=== PATIENT | female | born 1980 | race Caucasian/White ===

== ENCOUNTER 2020-12-27 11:19 | Emergency (ER) | payer OTHER, SELFPAY ==
--- NOTE | ~2020-12-27 | XR_ITS ---
LUMBAR SPINE INDICATION: Low back pain with bending over TECHNIQUE: 3 views lumbar spine COMPARISON: None FINDINGS: No fracture, subluxation or dislocation. Pedicles are intact. Mild levocurvature of the lum bar spine. No evidence for spondylolysis or spondylolisthesis. Vertebral bodies and disk spaces are preserved. Sacral foramen are symmetric. IMPRESSION: 1: No acute abnormality of the lumbar spine identified. Reviewed, dictated and finalized at location A.
[2020-12-27 11:25] VITALS: BP 110/58; PULSE 83; RESP 14; TEMP 36.8; O2SAT 98
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
== END 2020-12-27 12:36 | disposition home or self-care (01) ==
PROVIDERS: Emergency Provider Nurse Practitioner Family; PCP Family Medicine
DX: M62.830 Muscle spasm of back (principal); S39.012A Strain of muscle, fascia and tendon of lower back, initial encounter; X50.0XXA Overexertion from strenuous movement or load, initial encounter
CPT/HCPCS: 72100; 99213; G0463

== ENCOUNTER 2022-02-14 11:37 | Emergency (ER) | payer OTHER, SELFPAY ==
--- NOTE | ~2022-02-14 | XR_ITS ---
EXAMINATION: XR toe 5th LT min 2V INDICATION: Left fifth toe pain, initial encounter TECHNIQUE: Three views of the left fifth toe are obtained. COMPARISON: None available FINDINGS: There is an acute, traumatic, oblique neck fracture of the fifth proximal phalanx. No addit ional fracture is identified. The joint spaces are normal. There is soft tissue swelling of the fifth toe. IMPRESSION: 1. Acute fracture of the fifth proximal phalanx. Reviewed, dictated and finalized at location A.
[2022-02-14 11:44] VITALS: BP 120/62; PULSE 79; RESP 14; TEMP 36.9; O2SAT 100
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
== END 2022-02-14 12:30 | disposition home or self-care (01) ==
PROVIDERS: Emergency Provider Nurse Practitioner; PCP Family Medicine
DX: S92.512A Displaced fracture of proximal phalanx of left lesser toe(s), initial encounter for closed fracture (principal); W22.03XA Walked into furniture, initial encounter
CPT/HCPCS: 73660; 99214; G0463

== ENCOUNTER 2022-12-27 11:08 | Emergency (ER) | payer OTHER, SELFPAY ==
[2022-12-27 11:12] VITALS: BP 118/69; PULSE 79; RESP 16; TEMP 36.9; O2SAT 100
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
== END 2022-12-27 11:40 | disposition home or self-care (01) ==
PROVIDERS: Emergency Provider Nurse Practitioner Family; PCP Family Medicine
DX: H66.92 Otitis media, unspecified, left ear (principal); J45.909 Unspecified asthma, uncomplicated
CPT/HCPCS: 99213; G0463

== ENCOUNTER 2023-04-03 16:27 | Emergency (ER) | payer OTHER, SELFPAY ==
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
[2023-04-03 17:40] VITALS: BP 132/82; PULSE 79; RESP 16; TEMP 36.8; O2SAT 98
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
[2023-04-03] MEDS: LIDOCAINE 5% PATCH 1 PATCH TRANSDERM (21:45)
[2023-04-03] MEDS: CYCLOBENZAPRINE HCL 10 MG TABLET PO (21:46)
[2023-04-03] MEDS: KETOROLAC 30 MG/ML VIAL (*BKC) IM (21:47)
== END 2023-04-03 22:09 | disposition home or self-care (01) ==
PROVIDERS: Emergency Provider Emergency Medicine; PCP Family Medicine
DX: M54.2 Cervicalgia (principal); M79.10 Myalgia, unspecified site; J45.909 Unspecified asthma, uncomplicated; V49.40XA Driver injured in collision with unspecified motor vehicles in traffic accident, initial encounter
CPT/HCPCS: 70450; 72125; 96372; 99284; A9270; J1885

== ENCOUNTER 2023-04-14 17:44 | Emergency (ER) | payer OTHER, SELFPAY ==
--- NOTE | ~2023-04-14 | CT_ITS ---
EXAMINATION: CT abdomen pelvis wo con DATE: 04/15/2023 03:05 INDICATION: Low abdominal pain. Nausea. TECHNIQUE: Computed tomography (CT) of the abdomen and pelvis was performed without intravenous contr ast. Automated exposure control and iterative reconstruction technique were employed. The dose-length product was 333.73 mGy-cm. COMPARISON: None. FINDINGS: The visualized portions of the lung bases demonstrate minimal atelectasis. No pleural effus ion. The heart size is normal. No pericardial effusion. There is a small sliding hiatal hernia. There is diffuse hepatic steatosis. The liver, spleen, pancreas, adrenal glands, and kidneys are normal. T here is no urolithiasis. There is diverticulosis of the colon without evidence of diverticulitis. The appendix is normal. There are no dilated loops of bowel. There are no pathologically enlarged lymph nodes. There is no free intraperitoneal fluid. There is diastasis of the rectus abdominis muscles. Th ere is a widemouthed ventral hernia containing nonobstructed sigmoid colon. There is mild lumbar spon dylosis. IMPRESSION: 1. Small sliding hiatal hernia. 2. Diffuse hepatic steatosis. 3. Wide mouthed ventral hernia containing nonobstructed sigmoid colon. Reviewed, dictated and finalized at location E.
[2023-04-14 17:46] VITALS: BP 127/75; PULSE 84; RESP 16; TEMP 36.5; O2SAT 99
[2023-04-14 19:03] LABS: Basophils Percent Auto 0.3 % (0.2-1.2); Eosinophils Absolute Auto 0.4 K/mm3 (0-0.3); Eosinophils Percent Auto 4.2 % (0-4.4); Hematocrit 46.6 % (37.0-47.0); Hemoglobin 15.7 g/dL (12.0-15.0); Immature Granulocyte Absolute 0.03 K/mm3 (0.00-0.031); Immature Granulocyte Percent A 0.3 % (0-0.5); Lymphocytes Absolute Auto 1.96 K/mm3 (0.9-3.2); Lymphocytes Percent Auto 22.1 % (18.3-44.2); Mean Corpuscular HGB Conc 33.7 g/dl (32-36); Mean Corpuscular Hemoglobin 31.7 pg (26-34); Mean Corpuscular Volume 94.1 fl (80-100); Mean Platelet Volume 9.9 fl (7.4-10.4); Monocytes Absolute Auto 0.5 K/mm3 (0.1-0.6); Monocytes Percent Auto 5.4 % (2.6-8.5); Neutrophils Percent Auto 67.7 % (45.5-73.1); Platelet Count Result 276 k/mm3 (150-375); Red Blood Count 4.95 M/mm3 (4.2-5.4); Red Cell Distribution Width 12.8 % (11.5-14.5); White Blood Count 8.9 K/mm3 (4.5-10.0)
[2023-04-14 19:30] LABS: Appearance Urine Turbid (Clear); Bacteria Urine None Seen /hpf; Bilirubin Urine Negative (Negative); Blood Urine Negative (Negative); Color Urine Yellow (Yellow); Glucose Urine UA Negative (Negative); Ketones Urine Negative (Negative); Leukocyte Esterase Ur Negative LEU/UL (Negative); Nitrate Urine Negative (Negative); Non Pathogenic Casts 0-2; Protein Urine Negative (Negative); RBC Urine 0-2 /hpf (0-2); Specific Grav Ur 1.018 (1.001-1.035); Squamous Epithelial Cell Urine None seen /hpf (Few); Urobilinogen Urine 0.2 mg/dL (<2.0); WBC Urine 0-5 /hpf
[2023-04-14 19:44] LABS: Add Urine Microscopic? YES
[2023-04-15] VITALS (21 sets, daily range): BP systolic 102–107; BP diastolic 64–72; PULSE 65–98; RESP 10–29; O2SAT 97–100
[2023-04-15] MEDS: ONDANSETRON INJ 4 MG/2 ML VIAL IV PUSH (01:42)
[2023-04-15] MEDS: MORPHINE SULFATE (*CRX) 2 MG/ML INJ IV PUSH (01:42)
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
[2023-04-15 02:20] LABS: Alanine Aminotransferase 46 U/L (6-35); Albumin Level 4.9 g/dL (3.5-5.1); Alkaline Phosphatase 40 U/L (38-126); Anion Gap 7 mmol/L (8-16); Aspartate Amino Transferase 36 U/L (14-36); Bilirubin,Total 0.6 mg/dL (0.2-1.3); Blood Urea Nitrogen 15 mg/dL (7-17); Carbon Dioxide 30 mmol/L (22-30); Chloride 100 mmol/L (98-107); Estimated Glomerular Filt Rate > 60; Glucose 98 mg/dL (65-110); Lipase 102 U/L (23-300); Potassium 3.8 mmol/L (3.4-5.0); Sodium 137 mmol/L (137-145)
[2023-04-15 02:36] LABS: Pregnancy On Board Control Positive; Urine Pregnancy Test Negative
== END 2023-04-15 06:19 | disposition home or self-care (01) ==
PROVIDERS: Emergency Medicine; Physician Assistant; Emergency Provider Emergency Medicine; PCP Family Medicine
DX: K44.9 Diaphragmatic hernia without obstruction or gangrene (principal); R11.0 Nausea; R10.30 Lower abdominal pain, unspecified; J45.909 Unspecified asthma, uncomplicated; K76.0 Fatty (change of) liver, not elsewhere classified; K43.9 Ventral hernia without obstruction or gangrene
CPT/HCPCS: 36415; 74176; 80053; 81001; 81025; 83690; 85025; 96374; 96375; 99284; J2270; J2405

== ENCOUNTER 2023-05-01 10:07 | Outpatient (CLI) | payer OTHER, SELFPAY ==
[2023-05-01 11:19] LABS: Alanine Aminotransferase 41 U/L (6-35); Albumin Level 4.6 g/dL (3.5-5.1); Alkaline Phosphatase 44 U/L (38-126); Aspartate Amino Transferase 34 U/L (14-36); Bilirubin,Total 0.5 mg/dL (0.2-1.3)
[2023-05-01 12:06] LABS: Hepatitis B Surface Antigen Negative (Negative)
[2023-05-01 12:12] LABS: HAV RESULT Negative (Negative); Hepatitis B Core IgM Result Negative (Negative)
[2023-05-01 12:24] LABS: Hepatitis C Virus Antibody Negative (Negative)
== END 2023-05-01 10:08 | disposition home or self-care (01) ==
PROVIDERS: PCP Family Medicine; Visit Provider Nurse Practitioner
DX: K76.0 Fatty (change of) liver, not elsewhere classified (principal); R74.01 Elevation of levels of liver transaminase levels
CPT/HCPCS: 36415; 80074; 80076

== ENCOUNTER 2023-05-16 13:59 | Outpatient (CLI) | payer OTHER, SELFPAY ==
[2023-05-16 15:17] LABS: Prothrombin Time 13.1 Seconds (11.1-14.7)
== END 2023-05-16 14:00 | disposition home or self-care (01) ==
LOC: ANHSURGERY 14:09
PROVIDERS: Anesthesiology; PCP Family Medicine; Visit Provider Surgery
DX: Z01.818 Encounter for other preprocedural examination (principal); K76.0 Fatty (change of) liver, not elsewhere classified
CPT/HCPCS: 36415; 85610; 85730

== ENCOUNTER 2023-05-18 01:42 | Day surgery (SDC) | payer OTHER, SELFPAY ==
[2023-05-05 09:45] VITALS: BMI 23.6
--- NOTE | 2023-05-17 08:40 | SUR.PREOP ---
Patient called regarding upcoming procedure. Reviewed preop instructions, appointment times, and procedure prep.
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
[2023-05-18] MEDS: LACTATED RINGERS 1,000 ML 150 ML IV CONT (12:00)
[2023-05-18 12:04] VITALS: BP 104/74; PULSE 91; RESP 18; TEMP 36.2; O2SAT 100
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
--- NOTE | 2023-05-18 12:44 | SUR.OPER ---
EGD END 1239 COLONOSCOPY START 1244
[2023-05-18 13:00] VITALS: BP 93/63; PULSE 85; RESP 18; O2SAT 96
[2023-05-18 13:10] VITALS: BP 116/97; PULSE 84; RESP 18; O2SAT 100
[2023-05-18 13:20] VITALS: BP 100/69; PULSE 73; RESP 18; O2SAT 99
== END 2023-05-18 13:45 | disposition home or self-care (01) ==
PROVIDERS: PCP Family Medicine; Visit Provider Internal Medicine Gastroenterology
PROC: 0DJ08ZZ Inspection of Upper Intestinal Tract, Via Natural or Artificial Opening Endoscopic (ICD-10-PCS; CPT 43235; principal; 2023-05-18 13:00)
DX: K31.7 Polyp of stomach and duodenum (principal); K29.80 Duodenitis without bleeding; K21.9 Gastro-esophageal reflux disease without esophagitis; K57.30 Diverticulosis of large intestine without perforation or abscess without bleeding; Z79.51 Long term (current) use of inhaled steroids; Z79.1 Long term (current) use of non-steroidal anti-inflammatories (NSAID); Z79.899 Other long term (current) drug therapy
CPT/HCPCS: 43251; 43239; 45378; 87081; 88305; J2704; J7120

== ENCOUNTER 2023-05-23 11:11 | Inpatient (IN) | payer OTHER, SELFPAY ==
--- NOTE | 2023-05-15 16:41 | SUR.PREOP ---
Report to the Outpatient Waiting Room, entrance under the green pavilion located off [facility], at time 0600 on date 05/23/23. Planned Procedure Time: 0730. Time changes happen often and if your time is changed the preop area will call you the afternoon before. - You and your visitor will be asked to self-screen and do not enter if you have any COVID symptoms. - A mask is optional within the hospital at this time. Patients may have clear liquids (water, carbonated beverages, clear teas, apple juice) until 3 hours prior to surgery with a maximum of 20 ounces. - NO CLEAR LIQUIDS AFTER 0430 - No food from midnight until time of surgery - Infants may have breast milk until 4 hours before surgery, infant formula 6 hours prior to surgery. - Children will be allowed to drink immediately following surgery. If applicable, please bring a bottle or sippy cup to assist with drinking. Juice, water, soda, and popsicles are readily available. For infants on formula, please bring formula the day of surgery. Pacifiers are allowed. Take the following medications with a SIP of water the morning of surgery: BRING YOUR ALBUTEROL INHALER WITH YOU THE DAY OF SURGERY DO NOT STOP ANY OF YOUR OTHER PRESCRIPTION MEDICATIONS PRIOR TO SURGERY ?EXCEPT THE FOLLOWING Medications to discontinue per physician CALL DR HERNANDEZ'S OFFICE IN REGARDS TO STOPPING IBUPROFEN Date to take last dose Please no make-up, nail turkmen, hairspray, perfume, deodorant, or body powder the day of surgery. No jewelry (including any body piercings) or valuables the day of surgery, leave them at home. Please take a shower or bath the night before, or the morning of, surgery with an antibacterial soap. Wear comfortable, loose fitting clothing. Children are encouraged to wear pajamas. - Jewelry must be removed prior to entering the operating room. Rings and piercings that are not removed may be cut off. - The hospital will not accept responsibility for valuables. - Please leave all valuables, including medications, at home the day of surgery. If you are going home after surgery, a licensed school boat driver must drive you home. - NO public transportation without another adult if you receive anesthesia. - We recommend that an adult stay with you for 24 hours following discharge. - We also recommend that you do not drive, make important decision, drink alcoholic beverages, or take any drugs that were not prescribed by your health care provider for at least 24 hours after your discharge time. For Pediatric surgeries, we recommend two adults accompany the child home. Follow any additional instructions given to you from your surgeon. If you or anyone in your household have experienced Covid symptoms in the past week, please notify your surgeon or the nurse liaison at the phone number below for possible testing. Telephone instructions given to NATACHA RODRIGUEZ and asked if any additional questions and then verbalized understanding. Patient advised to call surgeon office or pre surgery nurse liaison [phone] if any additional questions.
[2023-05-15 16:57] VITALS: BMI 22.3
[2023-05-23] VITALS (17 sets, daily range): BP systolic 104–127; BP diastolic 69–90; PULSE 70–104; RESP 12–18; TEMP 36.1–37.1; O2SAT 85–100; BMI 22.6
--- NOTE | ~2023-05-23 | XR_ITS ---
XR chest 1V portable 05/23/2023 11:59 Indication: Pneumothorax. Previous chest tube. Procedure: AP portable chest Comparison: 05/23/2023 Findings: Interval development of focal airspace disease of the left upper lobe, right mid thorax and left lower lung, most likely atelectasis. No pleural effusion. Interval removal of endotracheal tube . No acute osseous abnormality. Impression: 1: Interval development of patchy bilateral airspace disease, most likely atelectasis. Reviewed, dictated and finalized at location L. HOUSE UNLOADER Impression: 1: Interval development of patchy bilateral airspace disease, most likely atele ctasis.
--- NOTE | ~2023-05-23 | XR_ITS ---
XR chest-chest tube insert/pos 05/23/2023 10:56 Indication: Previous pneumothorax. Procedure: AP portable chest Comparison: No prior studies for comparison. Findings: Endotracheal tube tip 2.4 cm above the lizeth. Bilateral perihilar interstitial infiltrates are present may represent mild edema or pneumonia. No pleural effusion. No definite pneumothorax, al though the lung apices are excluded. No acute osseous abnormality. Impression: 1: Bilateral interstitial infiltrates may represent mild edema or pneumonia. Reviewed, dictated and finalized at location L. VATING MACHINE OPERATOR Impression: 1: Bilateral interstitial infiltrates may represent mild edema or pneumonia.
[2023-05-23] MEDS: ACETAMINOPHEN 500 MG TABLET 1000 MG PO (07:15)
[2023-05-23] MEDS: LACTATED RINGERS 1,000 ML 30 ML IV CONT ×2 (07:15→11:15)
[2023-05-23] MEDS: KETOROLAC 15 MG/ML VIAL (*BKC) IV PUSH (07:15)
--- NOTE | 2023-05-23 07:18 | WPDHPUPDATE1 ---
History and Physical Update Update Date/Time: 05/23/23 07:18 History and Physical has been reviewed, including an updated exam of the patient. There are NO changes in the patient's condition. Risks, benefits, and alternatives have been discussed and questions answered. Patient agrees to proceed with procedure.
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
[2023-05-23] MEDS: ceFAZolin 2 GM/D5W 50 ML 2 GM/50 ML BAG IVPB ×3 (07:35→22:00)
[2023-05-23] MEDS: BUPIVACAINE/EPINEPHRINE 0.5% 50 ML VIAL INFILTRATE (08:09)
--- NOTE | 2023-05-23 11:14 | W.PM.PROC2 ---
Procedure Note - Detailed Date of Procedure 05/23/23 Pre-op Diagnosis ventral hernia Post-op Diagnosis Same Procedure Performed Repair 7 cm ventral hernia with mesh transversus abdominal is myofascial flap advancement 5 cm on right, 6 cm on the left, repair right-sided diaphragmatic transection Surgeon Rosangela Decker MD Ross Lift Operator Sloan Cummings MD Anesthesia General Indications Patient is a 42 year old female presenting with a wide-mouth periumbilical ventral hernia. On CT scan, the hernia was noted to be approximately 7 cm in with and 5 cm in length. Findings 7 x 5 cm wide mouth periumbilical ventral hernia, there was lateralization of the rectus muscle requiring bilateral myofascial release, release of 5 cm on right, 6 cm on left, diaphragmatic transection during myofascial release on right side requiring repair Description of Procedure The patient was taken to the operating room placed in the supine position. After adequate induction of general anesthesia, the patient was prepped and draped in the normal sterile fashion. A time-out was then done to verify the patient's identity, as well as the procedure being performed. A periumbilical midline incision was made to incorporate the ventral hernia defect. The dissection was taken down to the midline fascia. The fascia was opened above the hernia and we to gain access into the peritoneal cavity. Once access was gained, I was able to palpate the hernia defect in the periumbilical region. Of note, there was noted to be incarcerated sigmoid colon and small intestine within the hernia. I was able to reduce this back into the abdominal cavity. The incarcerated bowel was noted to be normal and nonischemic. I then excised the hernia sac. The measurements of the hernia were noted to be 7 x 5 cm. There was noted to be significant lateralization of the rectus muscles. I was able to open up the midline fascia both above and below the defect. There was some minimal adhesions to the anterior abdominal wall that were taken down. Given the size of the defect in the lateralization of the rectus muscles, we decided to proceed with myofascial release on the left. A blue towel was used to cover all the abdominal viscera. Beginning the dissection on the right, I opened the posterior rectus fascia near the medial border of the rectus muscle. After creating the opening, I was able to bluntly dissect the rectus muscle off the posterior fascia. I then continued this plane both superiorly and inferiorly the length of the incision. The cephalad portion of the dissection was taken up to the xiphoid process and continued posterior to the xiphoid itself. The caudad portion of the dissection continued down to the pelvis. This was carried down to the retro pubic space. The neurovascular bundles were noted at the lateral edges of the posterior rectus fascia and were preserved. Once this flap was made, we started the release just below the costal margin. The transversus muscle fibers were divided over a clamp. This dissection plane was carried both superiorly and inferiorly. We continued this dissection medial to the neurovascular bundles. The caudad portion of the dissection was down pass the semicircular line. Once this plane was achieved, we were able to release the fibers be on the axillary line to the point where the retroperitoneal fat was easily visualized. The entirety of the transversus fibers were released and transected. In the pubic area, we did divide the round ligament with cautery. The attachments below the semicircular line very filmy and easily dissected. The space created allowed mesh placement that would extend beyond the pubis caudally and above the xiphoid cephalad. Once this left-sided release was complete, there was noted to be about a 6 cm release. This did not allow a tension-free repair and therefore we proceeded with right-sided release. Again, an opening was made in the right posterior rectus fa
[2023-05-23] MEDS: fentaNYL CITRATE INJ (*CRX) 100 MCG/2 ML VIAL 25 MCG IV PUSH ×6 (11:21→11:55)
[2023-05-23] MEDS: HYDROmorphone HCL INJ (*CRX) 1 MG/ML SYR 0.5 MG IV PUSH ×4 (12:27→13:11)
--- NOTE | 2023-05-23 12:32 | SUR.PHASEI ---
1230 - dr. shine aware of chest xray results
--- NOTE | 2023-05-23 13:55 | PC.NURSE ---
This patient, Dea Sahni, was admitted to [facility] Surg Room 328-01. Patient/family oriented to hospital policies and general routines including ID bracelet, bed and alarms, visiting hours, pain management, procedures, bathroom and other care routines, personal items, smoking policy, room service/diet, and visiting hours. Information on how to activate the Rapid Response Team has been discussed. Patient/Family are encouraged to report perceived risks to care and to ask questions if they do not understand what they are told or what they should do.
[2023-05-23] MEDS: ONDANSETRON INJ 4 MG/2 ML VIAL IV PUSH ×3 (14:00→21:52)
[2023-05-23] MEDS: MORPHINE SULFATE (*CRX) 4 MG/ML INJ IV PUSH ×3 (14:46→21:57)
[2023-05-23] MEDS: LACTATED RINGERS 1,000 ML 100 ML IV CONT (14:47)
--- NOTE | 2023-05-23 14:56 | PCDIET ---
Pt reports an allergy to wheat and pepper specifically, sensitivity to corn and egg whites but tolerates them and is ok with corn by-products. Ok to remove corn and egg from allergen list per pt. Notified dietary staff.
[2023-05-24 00:05] VITALS: BP 97/68; PULSE 71; RESP 16; TEMP 36.9; O2SAT 100
[2023-05-24] MEDS: MORPHINE SULFATE (*CRX) 4 MG/ML INJ IV PUSH ×5 (02:08→20:33)
[2023-05-24] MEDS: ONDANSETRON INJ 4 MG/2 ML VIAL IV PUSH ×5 (02:09→18:30)
[2023-05-24 04:56] VITALS: BP 100/67; PULSE 73; RESP 16; TEMP 36.9; O2SAT 100
[2023-05-24] MEDS: ceFAZolin 2 GM/D5W 50 ML 2 GM/50 ML BAG IVPB (06:18)
[2023-05-24 06:24] LABS: Hematocrit 35.3 % (37.0-47.0); Hemoglobin 11.5 g/dL (12.0-15.0); Mean Corpuscular HGB Conc 32.6 g/dl (32-36); Mean Corpuscular Hemoglobin 31.3 pg (26-34); Mean Corpuscular Volume 96.2 fl (80-100); Mean Platelet Volume 10.1 fl (7.4-10.4); Platelet Count Result 202 k/mm3 (150-375); Red Blood Count 3.67 M/mm3 (4.2-5.4); Red Cell Distribution Width 12.7 % (11.5-14.5); White Blood Count 10.4 K/mm3 (4.5-10.0)
[2023-05-24 06:34] LABS: Anion Gap 6 mmol/L (8-16); Blood Urea Nitrogen 6 mg/dL (7-17); Calcium 8.6 mg/dL (8.4-10.2); Carbon Dioxide 30 mmol/L (22-30); Chloride 101 mmol/L (98-107); Estimated CRCL calculation 76 ml/min; Estimated Glomerular Filt Rate > 60; Glucose 100 mg/dL (65-110); Potassium 3.9 mmol/L (3.4-5.0); Sodium 137 mmol/L (137-145)
[2023-05-24 08:56] VITALS: BP 113/75; PULSE 83; RESP 18; TEMP 36.5; O2SAT 100
[2023-05-24] MEDS: ENOXAPARIN 40 MG/0.4 ML SYRINGE SUB-Q (09:36)
--- NOTE | 2023-05-24 09:38 | PM.PNGS ---
Progress Note: A&P Assessment and Plan (1) Ventral hernia: Qualifiers: Obstruction and gangrene presence: without obstruction or gangrene Qualified Code(s): K43.9 - Ventral hernia without obstruction or gangrene Code(s): K43.9 - Ventral hernia without obstruction or gangrene Status: Acute Assessment and Plan: doing well, cont routine postop care, dc hawley, PT/OT, encourage OOB/IS Subjective Subjective Date/Time Seen: 05/24/23 09:38 Interval history: feels pretty sore, otherwise doing well Review of Systems Review of Systems: All systems reviewed & are unremarkable except as noted in HPI and below Exam Const: General: cooperative, comfortable and no acute distress Resp: Auscultation: clear to auscultation bilaterally Cardio: Rate: regular rate Rhythm: regular rhythm GI: Inspection: normal to inspection, distended and incision GI Palp: Yes abdominal tenderness, Yes Soft to palpation, Yes Tenderness to palpation present (GI), No Guarding due to palpation present (GI) and No Rigid due to palpation Other: CATHY - mod sang drainage Objective Data Vital Signs Vital Signs: Vital Signs - 24 hr 05/23/23 11:15 05/23/23 11:30 05/23/23 11:45 Temperature 37.1 C Pulse Rate 99 95 104 H Respiratory Rate 15 16 12 Blood Pressure 109/69 106/69 110/70 Pulse Oximetry 100 99 100 Oxygen Delivery Simple Face Mask Simple Face Mask Nasal Cannula Oxygen Flow Rate 8 8 2 05/23/23 12:00 05/23/23 12:15 05/23/23 12:30 Temperature Pulse Rate 103 H 90 100 Respiratory Rate 12 12 14 Blood Pressure 118/71 119/78 112/79 Pulse Oximetry 100 85 L 100 Oxygen Delivery Nasal Cannula Nasal Cannula Nasal Cannula Oxygen Flow Rate 2 2 2 05/23/23 12:45 05/23/23 13:00 05/23/23 13:15 Temperature Pulse Rate 102 H 96 81 Respiratory Rate 18 18 12 Blood Pressure 117/87 110/81 113/83 Pulse Oximetry 100 99 99 Oxygen Delivery Nasal Cannula Nasal Cannula Nasal Cannula Oxygen Flow Rate 2 2 2 05/23/23 13:30 05/23/23 13:40 05/23/23 13:55 Temperature 36.6 C Pulse Rate 71 83 77 Respiratory Rate 14 12 14 Blood Pressure 121/79 121/88 127/90 Pulse Oximetry 98 99 97 Oxygen Delivery Room Air Nasal Cannula Oxygen Flow Rate 2 05/23/23 11:26 05/23/23 14:40 05/23/23 15:40 Temperature 36.6 C 36.6 C 36.4 C L Pulse Rate 90 78 70 Respiratory Rate 12 16 14 Blood Pressure 104/76 109/83 110/79 Pulse Oximetry 99 100 100 Oxygen Delivery Oxygen Flow Rate 05/23/23 13:55 05/23/23 20:56 05/24/23 00:05 Temperature 36.1 C L 36.9 C Pulse Rate 83 71 Respiratory Rate 16 16 Blood Pressure 108/76 97/68 L Pulse Oximetry 97 100 100 Oxygen Delivery Nasal Cannula Oxygen Flow Rate 2 05/24/23 04:56 05/24/23 08:56 Temperature 36.9 C 36.5 C Pulse Rate 73 83 Respiratory Rate 16 18 Blood Pressure 100/67 113/75 Pulse Oximetry 100 100 Oxygen Delivery Oxygen Flow Rate Intake/Output Intake/Output: Intake & Output 05/21/23 05/22/23 05/23/23 05/24/23 23:59 23:59 23:59 23:59 Intake Total 1570 536 Output Total 605 1045 Balance 965 -509 Meds/Results Medications: Active Medications Generic Name Dose Route Start Last Admin Trade Name Freq PRN Reason Stop Dose Admin Hydrocodone Bitart/Acetaminophen 1 tab 05/23/23 11:11 Hydrocodone/Acetaminophen (*Crx) 5-325 Mg Tablet PO Q4H PRN Pain Rated 4-6 Albuterol 1 puff 05/23/23 13:43 Albuterol Sulfate (*Sp) Aerosol 1 Puff INHALATION DAILY PRN Shortness Of Breath Diphenhydramine HCl 25 mg 05/23/23 11:11 Diphenhydramine Hcl Inj 50 Mg/Ml Vial IV PUSH Q6H PRN Itching Enoxaparin Sodium 40 mg 05/24/23 09:00 05/24/23 09:36 Enoxaparin 40 Mg/0.4 Ml Syringe SUB-Q 40 mg DAILY BERNICE Administration Fentanyl Citrate 25 mcg 05/22/23 15:27 05/23/23 11:55 Fentanyl Citrate Inj (*Crx) 100 Mcg/2 Ml Vial IV PUSH 25 mcg Q2M PRN Administration Pain Morphine Sulfate 2 mg
[2023-05-24 12:56] VITALS: BP 102/66; PULSE 102; RESP 16; TEMP 36.4; O2SAT 100
--- NOTE | 2023-05-24 14:23 | WPDANESPN ---
Anes - Prog Note Post-Op Date/Time: 05/24/23 14:23 Cardiovascular status: normal Respiratory status: normal Airway patency: baseline Mental status: baseline Post-Op hydration status: normal Vital Signs: Last Vital Signs Temp 97.7 F 05/24/23 08:56 Pulse 83 05/24/23 08:56 Resp 18 05/24/23 08:56 BP 113/75 05/24/23 08:56 Pulse Ox 100 05/24/23 08:56 O2 Del Method Nasal Cannula 05/23/23 13:55 O2 Flow Rate 2 05/23/23 13:55 Pain Score (VAS): 0/10 I/O: Intake & Output 05/23/23 05/24/23 05/24/23 23:59 07:59 15:59 Intake Total 720 300 236 Output Total 415 1030 165 Balance 305 -730 71 Laboratory Tests 05/24/23 05:53 05/24/23 05:53 05/24/23 05:53 WBC 10.4 H RBC 3.67 L Hgb 11.5 L D Hct 35.3 L MCV 96.2 MCH 31.3 MCHC 32.6 RDW 12.7 Plt Count 202 MPV 10.1 Sodium 137 Potassium 3.9 Chloride 101 Carbon Dioxide 30 Anion Gap 6 L BUN 6 L D Creatinine 0.70 Estim Creat Clear Calc 76 Estimated GFR > 60 Glucose 100 Calcium 8.6 Post-procedural complaints: none Patient Feedback: Patient satisfied with anesthetic care.
[2023-05-24] MEDS: HYDROcodone/acetaminophen (*CRX) 5-325 MG TABLET 1 TAB PO (16:43)
[2023-05-24] MEDS: BENZOCAINE/MENTHOL (*BKC) 18 EA LOZENGE 1 LOZENGE PO (17:13)
[2023-05-24 18:24] VITALS: BP 106/65
[2023-05-24] MEDS: MORPHINE SULFATE (*CRX) 2 MG/ML INJ IV PUSH (18:34)
[2023-05-24 21:06] VITALS: BP 114/68; PULSE 96; RESP 18; TEMP 36.3; O2SAT 100
[2023-05-25] MEDS: MORPHINE SULFATE (*CRX) 2 MG/ML INJ IV PUSH ×2 (00:09→06:31)
[2023-05-25] MEDS: ONDANSETRON INJ 4 MG/2 ML VIAL IV PUSH ×2 (00:09→06:31)
[2023-05-25] MEDS: BENZOCAINE/MENTHOL (*BKC) 18 EA LOZENGE 1 LOZENGE PO (00:13)
[2023-05-25] MEDS: HYDROcodone/acetaminophen (*CRX) 5-325 MG TABLET 1 TAB PO ×2 (04:14→17:46)
[2023-05-25 05:50] VITALS: BP 110/73; PULSE 95; RESP 18; TEMP 37.2; O2SAT 94
[2023-05-25 06:08] LABS: Hematocrit 33.5 % (37.0-47.0); Hemoglobin 10.9 g/dL (12.0-15.0); Mean Corpuscular HGB Conc 32.5 g/dl (32-36); Mean Corpuscular Hemoglobin 31.1 pg (26-34); Mean Corpuscular Volume 95.7 fl (80-100); Platelet Count Result 214 k/mm3 (150-375); Red Cell Distribution Width 12.8 % (11.5-14.5); White Blood Count 10.1 K/mm3 (4.5-10.0)
[2023-05-25 06:22] LABS: Anion Gap 8 mmol/L (8-16); Blood Urea Nitrogen 6 mg/dL (7-17); Calcium 8.4 mg/dL (8.4-10.2); Carbon Dioxide 28 mmol/L (22-30); Chloride 100 mmol/L (98-107); Estimated CRCL calculation 76 ml/min; Estimated Glomerular Filt Rate > 60; Glucose 112 mg/dL (65-110); Potassium 3.7 mmol/L (3.4-5.0); Sodium 136 mmol/L (137-145)
[2023-05-25] MEDS: ENOXAPARIN 40 MG/0.4 ML SYRINGE SUB-Q (09:00)
--- NOTE | 2023-05-25 10:26 | PM.PNGS ---
Progress Note: A&P Assessment and Plan (1) Ventral hernia: Qualifiers: Obstruction and gangrene presence: without obstruction or gangrene Qualified Code(s): K43.9 - Ventral hernia without obstruction or gangrene Code(s): K43.9 - Ventral hernia without obstruction or gangrene Status: Acute Assessment and Plan: Doing well postop day 2. Advance to soft diet. Continue wound dressing changes daily. Up walking and participating in therapy. Follow labs and clinical exam. (2) Headache: Qualifiers: Headache type: tension-type Headache chronicity pattern: chronic headache Intractability: not intractable Qualified Code(s): G44.229 - Chronic tension-type headache, not intractable Code(s): R51.9 - Headache, unspecified Status: Acute Assessment and Plan: Will try Toradol for headache relief. Subjective Subjective Date/Time Seen: 05/25/23 10:26 Post Op day: 2 Patient reports: pain is less, tolerating liquids well, no bowel movement, afebrile and other (Having a headache, occipital and left temporal) Review of Systems Review of Systems: All systems reviewed & are unremarkable except as noted in HPI and below (HPI) Exam Const: General: cooperative, comfortable, no acute distress, alert, awake and other (Ice pack under her neck due to headache) Orientation/consciousness: patient oriented x3 GI: Inspection: non-distended and incision (Dry, some ecchymosis around incision, no drainage no signs of infection) GI Palp: Yes Soft to palpation, Yes Tenderness to palpation present (GI) (Expected postoperative tenderness), No Guarding due to palpation present (GI) and No Rebound tenderness present Neuro: General: patient oriented x3 and no focal motor deficits Extrem: General: no calf tenderness and no edema Psych: Affect: normal affect Insight: Good insight present (Psych) Judgement: Good judgement present (Psych) Objective Data Vital Signs Vital Signs: Vital Signs - 24 hr 05/24/23 14:43 05/24/23 12:56 05/24/23 18:24 Temperature 36.4 C Pulse Rate 102 H Respiratory Rate 16 Blood Pressure 102/66 106/65 Pulse Oximetry 100 Oxygen Delivery Room Air 05/24/23 21:06 05/25/23 05:50 Temperature 36.3 C L 37.2 C Pulse Rate 96 95 Respiratory Rate 18 18 Blood Pressure 114/68 110/73 Pulse Oximetry 100 94 Oxygen Delivery Intake/Output Intake/Output: Intake & Output 05/22/23 05/23/23 05/24/23 05/25/23 23:59 23:59 23:59 23:59 Intake Total 1570 1881 618 Output Total 605 1235 1462 Balance 965 497 -355 Meds/Results Medications: Active Medications Generic Name Dose Route Start Last Admin Trade Name Freq PRN Reason Stop Dose Admin Hydrocodone Bitart/Acetaminophen 1 tab 05/23/23 11:11 05/25/23 04:14 Hydrocodone/Acetaminophen (*Crx) 5-325 Mg Tablet PO 1 tab Q4H PRN Administration Pain Rated 4-6 Albuterol 1 puff 05/23/23 13:43 Albuterol Sulfate (*Sp) Aerosol 1 Puff INHALATION DAILY PRN Shortness Of Breath Benzocaine 1 lozenge 05/24/23 16:12 05/25/23 00:13 Benzocaine/Menthol (*Bkc) 18 Ea Lozenge PO 1 lozenge PRN PRN Administration Sore Throat Diphenhydramine HCl 25 mg 05/23/23 11:11 Diphenhydramine Hcl Inj 50 Mg/Ml Vial IV PUSH Q6H PRN Itching Enoxaparin Sodium 40 mg 05/24/23 09:00 05/25/23 09:00 Enoxaparin 40 Mg/0.4 Ml Syringe SUB-Q 40 mg DAILY BERNICE Administration Fentanyl Citrate 25 mcg 05/22/23 15:27 05/23/23 11:55 Fentanyl Citrate Inj (*Crx) 100 Mcg/2 Ml Vial IV PUSH 25 mcg Q2M PRN Administration Pain Ketorolac Tromethamine 60 mg 05/25/23 10:21 Ketorolac 30 Mg/Ml Vial (*Bkc) IV PUSH 05/25/23 10:22 ONCE ONE Ketorolac Tromethamine 30 mg 05/25/23 10:21 Ketorolac 30 Mg/Ml Vial (*Bkc) IV PUSH Q6H PRN Headache Morphine Sulfate 2 mg 05/23/23 11:11 05/25/23 06:31 Morphine Sulfate (*Crx) 2 Mg/Ml Inj IV PUSH 2 mg Q
[2023-05-25] MEDS: polyethylene glycoL 3350 17 GM POWD.PACK PO (10:51)
[2023-05-25] MEDS: KETOROLAC 30 MG/ML VIAL (*BKC) 60 MG IV PUSH (10:52)
[2023-05-25 14:27] VITALS: BP 108/72; PULSE 90; RESP 16; TEMP 36.4; O2SAT 98
[2023-05-25] MEDS: KETOROLAC 30 MG/ML VIAL (*BKC) IV PUSH (16:16)
[2023-05-25] MEDS: PANTOPRAZOLE 40 MG TABLET PO (17:07)
[2023-05-25 17:31] VITALS: BP 106/63
[2023-05-25] MEDS: diphenhydrAMINE HCl INJ 50 MG/ML VIAL 25 MG IV PUSH (18:24)
[2023-05-25] MEDS: SENNA/DOCUSATE SODIUM TABLET 2 TAB PO (20:33)
[2023-05-25 20:44] VITALS: BP 103/67; PULSE 88; RESP 16; TEMP 37; O2SAT 96
[2023-05-26] MEDS: HYDROcodone/acetaminophen (*CRX) 5-325 MG TABLET 1 TAB PO ×2 (05:47→20:28)
[2023-05-26 06:22] VITALS: BP 96/65; PULSE 87; RESP 16; TEMP 36.6; O2SAT 97
[2023-05-26 07:01] LABS: Hematocrit 27.9 % (37.0-47.0); Hemoglobin 9.2 g/dL (12.0-15.0); Mean Corpuscular Hemoglobin 31.6 pg (26-34); Mean Corpuscular Volume 95.9 fl (80-100); Mean Platelet Volume 9.8 fl (7.4-10.4); Platelet Count Result 189 k/mm3 (150-375); Red Blood Count 2.91 M/mm3 (4.2-5.4); Red Cell Distribution Width 12.7 % (11.5-14.5); White Blood Count 6.8 K/mm3 (4.5-10.0)
[2023-05-26 07:11] LABS: Anion Gap 8 mmol/L (8-16); Blood Urea Nitrogen 7 mg/dL (7-17); Calcium 7.9 mg/dL (8.4-10.2); Carbon Dioxide 28 mmol/L (22-30); Chloride 98 mmol/L (98-107); Estimated CRCL calculation 88 ml/min; Estimated Glomerular Filt Rate > 60; Glucose 104 mg/dL (65-110); Potassium 3.3 mmol/L (3.4-5.0); Sodium 134 mmol/L (137-145)
[2023-05-26 07:59] VITALS: BP 97/59; PULSE 87; RESP 18; O2SAT 99
[2023-05-26] MEDS: PANTOPRAZOLE 40 MG TABLET PO (08:55)
[2023-05-26] MEDS: ENOXAPARIN 40 MG/0.4 ML SYRINGE SUB-Q (08:58)
[2023-05-26] MEDS: KETOROLAC 30 MG/ML VIAL (*BKC) IV PUSH (09:32)
[2023-05-26] MEDS: POTASSIUM CHLORIDE 20 MEQ ER TABLET 40 MEQ PO ×2 (09:36→16:22)
[2023-05-26] MEDS: BUMETANIDE INJ 1 MG/4 ML VIAL 2 MG IV PUSH ×2 (09:38→16:25)
[2023-05-26 09:43] VITALS: BP 110/70
[2023-05-26 12:00] VITALS: BP 116/74; PULSE 102; RESP 20; TEMP 36.2; O2SAT 100
--- NOTE | 2023-05-26 12:35 | PCNFU ---
Nutrition Follow-Up Complete: Inadequate energy intake related to diet order as evidenced by clear liquid status - resolved Diet advanced - goal is met. Regular diet Goal: Pt current nutrition is regular diet. 90% breakfast on previous low fiber. Nutrition recommendation: Continue with current nutrition care plan and diet orders. Agree with orders. Last recorded weight is 59.8 kg. Bowel Motility: Last BM 05/24/23 +1 Labs Reviewed: Hgb 9.2, Hct 27.9, Na 134, K+ 3.3, Cre 0.6 Meds Noted: Lovenox, Zofran Skin: WNL Additional Notes: Advanced to regular diet. Appetite fair. Agree with current orders. Monitor intake, wt, labs. Follow up in 5 days.
--- NOTE | 2023-05-26 12:57 | PCPTNOTE ---
Attempted to see patient in [facility] for PT, however patient out of room walking in [place] with family. Patient has no physical therapy needs at this time. Spoke to Dr. Cummings who is following patient today and he agrees patient has no skilled therapy needs at this time. Will plan to discharge from PT services.
[2023-05-26 15:00] VITALS: BP 100/64; PULSE 94; RESP 18; TEMP 36.7; O2SAT 98
[2023-05-26] MEDS: ONDANSETRON INJ 4 MG/2 ML VIAL IV PUSH (15:28)
[2023-05-26] MEDS: SENNA/DOCUSATE SODIUM TABLET 2 TAB PO (20:28)
[2023-05-26] MEDS: PSYLLIUM POWDER PACKET 1 PACKET PO (20:29)
[2023-05-26 20:57] VITALS: BP 113/79; PULSE 118; RESP 16; TEMP 37.1; O2SAT 98
[2023-05-27 04:00] VITALS: BP 104/65; PULSE 88; RESP 15; TEMP 36.5; O2SAT 100
[2023-05-27 06:47] LABS: Hematocrit 28.3 % (37.0-47.0); Hemoglobin 9.2 g/dL (12.0-15.0); Mean Corpuscular HGB Conc 32.5 g/dl (32-36); Mean Corpuscular Hemoglobin 31.3 pg (26-34); Mean Corpuscular Volume 96.3 fl (80-100); Mean Platelet Volume 9.9 fl (7.4-10.4); Platelet Count Result 258 k/mm3 (150-375); Red Blood Count 2.94 M/mm3 (4.2-5.4); Red Cell Distribution Width 12.4 % (11.5-14.5); White Blood Count 5.1 K/mm3 (4.5-10.0)
[2023-05-27 06:54] LABS: Anion Gap 9 mmol/L (8-16); Blood Urea Nitrogen 8 mg/dL (7-17); Calcium 8.5 mg/dL (8.4-10.2); Carbon Dioxide 29 mmol/L (22-30); Chloride 99 mmol/L (98-107); Estimated CRCL calculation 76 ml/min; Estimated Glomerular Filt Rate > 60; Glucose 95 mg/dL (65-110); Potassium 3.9 mmol/L (3.4-5.0); Sodium 137 mmol/L (137-145)
[2023-05-27] MEDS: BUMETANIDE INJ 1 MG/4 ML VIAL 2 MG IV PUSH (08:35)
[2023-05-27] MEDS: ENOXAPARIN 40 MG/0.4 ML SYRINGE SUB-Q (08:35)
[2023-05-27] MEDS: POTASSIUM CHLORIDE 20 MEQ ER TABLET 40 MEQ PO (08:35)
[2023-05-27] MEDS: PSYLLIUM POWDER PACKET 1 PACKET PO (08:36)
[2023-05-27] MEDS: PANTOPRAZOLE 40 MG TABLET PO (08:36)
[2023-05-27] MEDS: HYDROcodone/acetaminophen (*CRX) 5-325 MG TABLET 1 TAB PO (08:36)
--- NOTE | 2023-05-27 11:22 | PM.DS ---
DS: Admitting Diagnosis Discharge Date 05/27/2023 Admitting Diagnosis Large ventral hernia Gastroesophageal reflux DS: Discharge Diagnosis Discharge Diagnosis (1) Ventral hernia: Qualifiers: Obstruction and gangrene presence: without obstruction or gangrene Qualified Code(s): K43.9 - Ventral hernia without obstruction or gangrene Code(s): K43.9 - Ventral hernia without obstruction or gangrene Status: Chronic (2) GERD (gastroesophageal reflux disease): Qualifiers: Esophagitis presence: esophagitis presence not specified Qualified Code(s): K21.9 - Gastro-esophageal reflux disease without esophagitis Code(s): K21.9 - Gastro-esophageal reflux disease without esophagitis Status: Chronic DS: Summary Hospital Course Hospital Course: Patient was prepared for surgery and taken to the operating room on 05/23/2023. She underwent ventral hernia repair with mesh with bilateral transversus abdominis myofascial flap advancement. The surgery went well. Patient was having, predictably, fair amount of postoperative pain on days 1 and 2. She was using intravenous pain medication and occasionally some oral medication. She had quite a bit of difficulty getting out of bed requiring a lot of help even to sit in a chair. Her diet was able to slowly be advanced. Her H&H slowly decreased, more consistent with dilutional effects than bleeding. There was no evidence of significant bleeding on exam and her vital signs were stable. She was experiencing quite a bit less pain although she was taking intravenous Toradol on postop day 3. She was given laxatives but had not had really a bowel movement during or hospital stay. She was given Bumex diuretics on postop day 3. And had multiple voids, 11 were recorded. Her pain continued to improve. By postop day 4., she was only taking oral pain medication with rarely any Toradol. She was able to ambulate independently. Her retro rectus CATHY drain was able to be removed on postop day 3. Her H&H was stable on the day of discharge 05/27/2023. She was able to be discharged in improved condition. She was also voiding without difficulty. Status at Discharge Functional status at discharge: independent ambulation Overall status at discharge: patient is progressing back to baseline Time Spent with Patient Time attestation: Total time spent providing and/or coordinating discharge services: Time spent: Less than 30 minutes DS: Data Data Completed and Pending Labs on day of discharge: Labs from last 24 hours 05/27/23 06:19 WBC 5.1 RBC 2.94 L Hgb 9.2 L Hct 28.3 L MCV 96.3 MCH 31.3 MCHC 32.5 RDW 12.4 Plt Count 258 MPV 9.9 Sodium 137 Potassium 3.9 Chloride 99 Carbon Dioxide 29 Anion Gap 9 BUN 8 Creatinine 0.70 Estim Creat Clear Calc 76 Estimated GFR > 60 Glucose 95 Calcium 8.5 Discharge Plan Discharge Attending physician on discharge: Rosangela Decker Discharging Clinician: Sloan Cummings Anticipated Discharge Date/Time: 05/27/23 11:30 Patient Disposition: Home, Self-Care Activity: may shower, no straining and as tolerated Diet: regular Wound Care Instructions: keep dressing dry, remove dressing to shower and change dressing daily Discharge Instructions: Ambulate 3-4 x per day and as tolerated. No lifting over 15-20lbs. May bathe or shower. Please wash over incision with soap and water when showering or bathing. Stairs are OK. May drive a car in 3 days. Remove any dressings before shower and replace after. Use dry gauze and Medipore tape to dress the wound after discharge. Patient Instructions: Antibiotic Form Stand Alone Forms: General Discharge Information Follow-up/Referrals: Rosangela Decker MD [Physician] - 05/30/23 (Call Dr. Decker's office on Monday to get a follow-up appointment this week.) Discharge Medications: New oxycodone-acetaminophen [Percocet] 5-325 mg tablet
[2023-05-27] MEDS: ONDANSETRON INJ 4 MG/2 ML VIAL IV PUSH (11:59)
== END 2023-05-27 13:00 | disposition home or self-care (01) | DRG 220 ==
LOC: ANHSURGERY 12:11 → ANH3MEDSUR 13:45
PROVIDERS: Admitting Provider Surgery; PCP Family Medicine; Visit Provider Surgery
PROC: 0WQF0ZZ Repair Abdominal Wall, Open Approach (ICD-10-PCS; principal; 2023-05-23 07:30)
DX: K43.9 Ventral hernia without obstruction or gangrene (principal); K76.0 Fatty (change of) liver, not elsewhere classified; K21.9 Gastro-esophageal reflux disease without esophagitis; G44.229 Chronic tension-type headache, not intractable
CPT/HCPCS: 36415; 71045; 80048; 85027; 97161; 97165; 97530; 97535; A9270; C1781; J0690; J1100; J1170; J1200; J1650; J1885; J2250; J2270; J2405; J2704; J3010; J7120

== ENCOUNTER 2023-05-29 09:29 | Outpatient (CLI) | payer OTHER, SELFPAY ==
[2023-05-29 10:47] LABS: Hematocrit 30.7 % (37.0-47.0); Hemoglobin 9.8 g/dL (12.0-15.0); Mean Corpuscular HGB Conc 31.9 g/dl (32-36); Mean Corpuscular Hemoglobin 31.4 pg (26-34); Mean Corpuscular Volume 98.4 fl (80-100); Mean Platelet Volume 9.8 fl (7.4-10.4); Platelet Count Result 365 k/mm3 (150-375); Red Blood Count 3.12 M/mm3 (4.2-5.4); Red Cell Distribution Width 12.9 % (11.5-14.5); White Blood Count 8.5 K/mm3 (4.5-10.0)
== END 2023-05-29 09:30 | disposition home or self-care (01) ==
PROVIDERS: PCP Family Medicine; Visit Provider Surgery
DX: D64.9 Anemia, unspecified (principal)
CPT/HCPCS: 36415; 85027

== ENCOUNTER 2023-06-02 15:02 | Outpatient (CLI) | payer OTHER, SELFPAY ==
[2023-06-02 15:36] LABS: Potassium 3.8 mmol/L (3.4-5.0)
== END 2023-06-02 15:03 | disposition home or self-care (01) ==
PROVIDERS: PCP Family Medicine; Visit Provider Surgery
DX: E87.6 Hypokalemia (principal)
CPT/HCPCS: 36415; 84132

== ENCOUNTER 2023-10-31 10:09 | Outpatient (CLI) | payer OTHER, SELFPAY ==
[2023-10-31 10:41] LABS: Hematocrit 43.6 % (37.0-47.0); Hemoglobin 14.8 g/dL (12.0-15.0); Mean Corpuscular HGB Conc 33.9 g/dl (32-36); Mean Corpuscular Hemoglobin 31.6 pg (26-34); Mean Platelet Volume 9.7 fl (7.4-10.4); Platelet Count Result 247 k/mm3 (150-375); Red Blood Count 4.69 M/mm3 (4.2-5.4); Red Cell Distribution Width 14.6 % (11.5-14.5); White Blood Count 5.5 K/mm3 (4.5-10.0)
[2023-10-31 10:52] LABS: INR 0.9; Prothrombin Time 12.5 Seconds (11.1-14.7)
[2023-10-31 10:58] LABS: Alanine Aminotransferase 41 U/L (6-35); Albumin Level 4.9 g/dL (3.5-5.1); Alkaline Phosphatase 42 U/L (38-126); Anion Gap 8 mmol/L (4-12); Aspartate Amino Transferase 30 U/L (14-36); Bilirubin,Total 0.7 mg/dL (0.2-1.3); Blood Urea Nitrogen 9 mg/dL (7-17); Carbon Dioxide 27 mmol/L (22-30); Chloride 104 mmol/L (98-107); Estimated Glomerular Filt Rate > 60; Glucose 89 mg/dL (65-110); Potassium 3.8 mmol/L (3.4-5.0); Sodium 139 mmol/L (137-145)
== END 2023-10-31 10:10 | disposition home or self-care (01) ==
LOC: ANHLAB 10:10
PROVIDERS: PCP Family Medicine; Visit Provider Nurse Practitioner
DX: K76.0 Fatty (change of) liver, not elsewhere classified (principal); R14.0 Abdominal distension (gaseous)
CPT/HCPCS: 36415; 80053; 85027; 85610

== ENCOUNTER 2023-11-01 15:56 | Outpatient (CLI) | payer OTHER, SELFPAY ==
[2023-11-01 16:53] LABS: Iron 174 ug/dL (37-170)
[2023-11-01 17:03] LABS: Percent Iron Saturation 62 % (20-50)
[2023-11-03 09:48] LABS: Ceruloplasmin 25 mg/dL (18-53)
[2023-11-07 13:29] LABS: LKM 1 Antibody <=20.0 U (<=20.0)
[2023-11-08 12:58] LABS: Actin Antibody (IgG) 22 U (<20)
[2023-11-15 03:24] LABS: ALT 31 U/L (6-29); Alpha-2-Macroglobulin 205 mg/dL (106-279); Apolipoprotein A1 212 mg/dL (101-198); Fibrosis Score 0.07; Fibrosis Stage F0; GGT 24 U/L (3-55); Haptoglobin 100 mg/dL (43-212); Necroinflammat Act Grade A0; Total Bilirubin 0.4 mg/dL (0.2-1.2)
[2023-11-19 22:36] LABS: Mitochondrial (M2) Ab (IgG) <20.0 U
== END 2023-11-01 15:57 | disposition home or self-care (01) ==
LOC: ANHLAB 15:58
PROVIDERS: PCP Family Medicine; Visit Provider Nurse Practitioner
DX: K76.0 Fatty (change of) liver, not elsewhere classified (principal); R74.01 Elevation of levels of liver transaminase levels; K74.60 Unspecified cirrhosis of liver
CPT/HCPCS: 36415; 81596; 82104; 82105; 82390; 82728; 82977; 83520; 83540; 83550; 86038; 86364; 86376

== ENCOUNTER 2023-11-16 09:59 | Outpatient (CLI) | payer OTHER, SELFPAY ==
--- NOTE | ~2023-11-16 | US_ITS ---
EXAMINATION: US abdomen complete DATE: 11/16/2023 11:14 INDICATION: Fatty change of liver, not elsewhere classified. TECHNIQUE: Multiple grayscale and Doppler ultrasound images of the abdomen were obtained. COMPARISON: CT abdomen and pelvis 04/15/2023 FINDINGS: Abdominal aorta is normal in caliber. Inferior vena cava is normal. The visualized portions of the head of the pancreas are normal. There is diffuse hepatic steatosis. There is normal flow in main portal vein. The gallbladder is normal in size. No gallstones or gallbladder wall thickening. Th ere is no sonographic Hernandez's sign. The common duct is normal and measures 3 mm. The kidneys are nor mal in size. The spleen is normal in size. IMPRESSION: 1. Diffuse hepatic steatosis. Reviewed, dictated and finalized at location E.
== END 2023-11-16 10:00 | disposition home or self-care (01) ==
PROVIDERS: PCP Family Medicine; Visit Provider Nurse Practitioner
DX: K76.0 Fatty (change of) liver, not elsewhere classified (principal); R14.0 Abdominal distension (gaseous)
CPT/HCPCS: 76700

== ENCOUNTER 2023-12-06 10:25 | Outpatient (CLI) | payer OTHER, SELFPAY | END 2023-12-06 10:26 | disposition home or self-care (01) | LOC: ANHLAB 10:27 | PROVIDERS: PCP Family Medicine; Visit Provider Nurse Practitioner | DX: R74.01 Elevation of levels of liver transaminase levels (principal); K76.0 Fatty (change of) liver, not elsewhere classified | CPT/HCPCS: 36415; 81256 ==

== ENCOUNTER 2024-01-25 10:46 | Outpatient (CLI) | payer OTHER, SELFPAY ==
[2024-01-25 10:59] LABS: Basophils Percent Auto 0.4 % (0.2-1.2); Eosinophils Absolute Auto 0.3 K/mm3 (0-0.3); Eosinophils Percent Auto 5.8 % (0-4.4); Hematocrit 43.8 % (37.0-47.0); Hemoglobin 14.9 g/dL (12.0-15.0); Immature Granulocyte Absolute 0.01 K/mm3 (0.00-0.031); Immature Granulocyte Percent A 0.2 % (0-0.5); Lymphocytes Absolute Auto 1.47 K/mm3 (0.9-3.2); Lymphocytes Percent Auto 30.4 % (18.3-44.2); Mean Corpuscular Hemoglobin 31.8 pg (26-34); Mean Corpuscular Volume 93.6 fl (80-100); Mean Platelet Volume 9.4 fl (7.4-10.4); Monocytes Absolute Auto 0.4 K/mm3 (0.1-0.6); Monocytes Percent Auto 7.5 % (2.6-8.5); Neutrophils Absolute Auto 2.7 K/mm3 (1.3-6.7); Neutrophils Percent Auto 55.7 % (45.5-73.1); Platelet Count Result 257 k/mm3 (150-375); Red Blood Count 4.68 M/mm3 (4.2-5.4); Red Cell Distribution Width 12.2 % (11.5-14.5); White Blood Count 4.8 K/mm3 (4.5-10.0)
[2024-01-25 11:32] LABS: Alanine Aminotransferase 44 U/L (6-35); Albumin Level 4.8 g/dL (3.5-5.1); Alkaline Phosphatase 38 U/L (38-126); Anion Gap 10 mmol/L (4-12); Aspartate Amino Transferase 33 U/L (14-36); Bilirubin,Total 0.5 mg/dL (0.2-1.3); Blood Urea Nitrogen 10 mg/dL (7-17); Carbon Dioxide 27 mmol/L (22-30); Chloride 100 mmol/L (98-107); Estimated Glomerular Filt Rate > 60; Glucose 107 mg/dL (65-110); Potassium 4.1 mmol/L (3.4-5.0); Sodium 137 mmol/L (137-145)
[2024-01-25 13:18] LABS: Iron 180 ug/dL (37-170)
[2024-01-25 13:30] LABS: Percent Iron Saturation 62 % (20-50)
== END 2024-01-25 10:47 | disposition home or self-care (01) ==
LOC: ANHLAB 10:47
PROVIDERS: Nurse Practitioner Family; PCP Family Medicine; Visit Provider Internal Medicine Hematology & Oncology
DX: E83.110 Hereditary hemochromatosis (principal)
CPT/HCPCS: 36415; 80053; 82728; 83540; 83550; 85025

== ENCOUNTER 2024-02-05 15:36 | Outpatient (CLI) | payer OTHER, SELFPAY ==
--- NOTE | ~2024-02-05 | XR_ITS ---
EXAMINATION: XR chest 2V Exam Date/Time: 02/05/2024 15:42 CDT HISTORY: STANDARD CHEST XRAY ABNORMAL. hx asthma Comparison: 05/23/2023. RESULT: Lines, tubes, and devices: None. Lungs and pleura: Clear. Cardiomediastinal silhouette: Stable. Other: No acute osseous or upper abdominal finding. IMPRESSION: No acute cardiopulmonary process. Reviewed, dictated and finalized at location K.
== END 2024-02-05 15:37 | disposition home or self-care (01) ==
LOC: ANHIMG 15:38
PROVIDERS: PCP Family Medicine; Visit Provider Family Medicine
DX: R93.89 Abnormal findings on diagnostic imaging of other specified body structures (principal); J45.909 Unspecified asthma, uncomplicated
CPT/HCPCS: 71046; 99195

== ENCOUNTER 2024-02-09 13:13 | Outpatient (CLI) | payer OTHER, SELFPAY ==
[2024-02-09 14:35] LABS: Alanine Aminotransferase 39 U/L (6-35); Albumin Level 4.4 g/dL (3.5-5.1); Alkaline Phosphatase 41 U/L (38-126); Aspartate Amino Transferase 28 U/L (14-36); Bilirubin,Total 0.4 mg/dL (0.2-1.3)
[2024-02-15 14:05] LABS: Actin Antibody (IgG) 35 U (<20)
== END 2024-02-09 13:14 | disposition home or self-care (01) ==
LOC: ANHLAB 13:15
PROVIDERS: PCP Family Medicine; Visit Provider Nurse Practitioner
DX: K76.0 Fatty (change of) liver, not elsewhere classified (principal)
CPT/HCPCS: 36415; 80076; 86364

== ENCOUNTER 2024-03-07 05:30 | Outpatient (CLI) | payer OTHER, SELFPAY ==
[2024-03-05 09:27] VITALS: BMI 24.0
--- NOTE | 2024-03-05 09:28 | PC.NURSE ---
Pre Radiology instructions Report to the outpatient [facility] on date _[id number]_ at time _0730_ for procedure Time: _929 YOU MAY BE MONITORED AT HOSPITAL FOR UP TO 4 HOURS AFTER YOUR PROCEDURE. A visitor will be allowed to accompany the patient into the hospital. You and your visitor will be asked to self-screen and do not enter if you have any COVID symptoms. A mask is OPTIONAL within the hospital. Patients are to have no food or drink 6 hours prior to procedure time Driving will be restricted after the procedure, you must have a person to drive you home. Labs will be drawn in preop area and once reviewed, you will be taken to radiology area for procedure. When the procedure is completed, you will be taken to outpatient where you will be monitored for several hours. You may have one visitor in this area. Other than holding anti-coagulants, patient may take other medication(s) as scheduled. Prior to your appointment date patients are instructed to hold anti-coagulants after discussing with ordering provider to stop. If unable to discontinue anti-coagulants please notify radiologist. ? No aspirin or warfarin (Coumadin) for 7 days prior to the procedure. ? No clopidogrel (Plavix), ticagrelor (Brilinta), prasugrel (Effient) or dabigatran (Pradaxa) for 5 days prior to the procedure. ? No rivaroxaban (Xarelto), apixaban (Eliquis), dipyridamole (Aggrenox or Persantine) or cilostazol (Pletal) for 2 days prior to the procedure. Medications to discontinue per physician: Date to take last dose: Please leave all valuables, including medications, at home the day of procedure. The hospital will not accept responsibility for valuables. Wear comfortable, loose fitting clothing.? Follow any additional instructions given to you from ordering provider. Telephone instructions given to __Leann___and asked if any additional questions and then verbalized understanding. Patient advised to call scheduling provider office or registration scheduling [phone] if any additional questions.
[2024-03-07] VITALS (12 sets, daily range): BP systolic 108–130; BP diastolic 67–92; PULSE 65–86; RESP 14–18; TEMP 36.2; O2SAT 99–100
--- NOTE | ~2024-03-07 | US_ITS ---
EXAMINATION: US biopsy liver DATE: 03/07/2024 10:26 INDICATION: Elevated actin IgG TECHNIQUE: The procedure including the risks and benefits was discussed with the patient. Risks discu ssed included bleeding and infection. The patient understood the risks and agreed to proceed. The sk in overlying the left hepatic lobe was prepped and draped in usual sterile fashion. Anesthetic was a dministered with 1% lidocaine subcutaneously. An 18 gauge core biopsy needle was advanced under cont inuous ultrasound observation to the lesion of interest. 3 core biopsy specimens were obtained. The needle was removed and the entry site was cleaned and dressed. Post procedure ultrasound demonstrat ed no hemorrhage. FINDINGS: Ultrasound images demonstrate biopsy needles advanced into the left hepatic lobe. IMPRESSION: 1. Successful Ultrasound-guided random liver biopsy in the left hepatic lobe. Reviewed, dictated and finalized at location A.
[2024-03-07 09:08] LABS: Immature Platelet Fraction Pct 15.9 % (0.9-11.2); Platelet Count Result 145 k/mm3 (150-375)
[2024-03-07] MEDS: oxyCODONE HCL (*CRX) 5 MG TAB IR PO (10:47)
== END 2024-03-07 14:25 | disposition home or self-care (01) ==
PROVIDERS: PCP Family Medicine; Referring Provider Radiology Diagnostic Radiology; Visit Provider Nurse Practitioner
PROC: BF45ZZZ Ultrasonography of Liver (ICD-10-PCS; CPT 47000; principal; 2024-03-07 09:30)
DX: R74.8 Abnormal levels of other serum enzymes (principal); K75.81 Nonalcoholic steatohepatitis (NASH); E83.119 Hemochromatosis, unspecified; R79.89 Other specified abnormal findings of blood chemistry
CPT/HCPCS: 36415; 47000; 76942; 85049; 85055; 85610; 88307; 88312; 88313; A9270

== ENCOUNTER 2024-05-07 13:01 | Outpatient (CLI) | payer OTHER, SELFPAY ==
--- NOTE | 2024-05-07 14:30 | NEURO_ITS ---
Impression: # Complains of upper extremity pain. # Subtle sensory Carpal Tunnel Syndrome. # No ulnar neuropathy. # Normal needle/EMG exam proximally and distally. # Clinical correlation recommended. Nerve Conduction Studies Anti Sensory Summary Table Stim Site NR Peak (ms) P-T Amp (?V) Site1 Site2 Delta-P (ms) Dist (cm) Itz (m/s) Left Median Anti Sensory (2-3nd Digit) Wrist 3.2 48.0 Wrist 2-3nd Digit 3.2 14.0 44 Wrist 3.3 38.0 Wrist 2-3nd Digit 3.2 14.0 44 Right Median Anti Sensory (2-3nd Digit) Wrist 2.8 54.6 Wrist 2-3nd Digit 2.8 14.0 50 Wrist 2.9 73.4 Wrist 2-3nd Digit 2.8 14.0 50 Left Radial Anti Sensory (Base 1st Digit) Wrist 1.6 49.9 Wrist Base 1st Digit 1.6 0.0 Right Radial Anti Sensory (Base 1st Digit) Wrist 1.8 30.4 Wrist Base 1st Digit 1.8 0.0 Left Ulnar Anti Sensory (5th Digit) Wrist 2.4 64.3 Wrist 5th Digit 2.4 14.0 58 Right Ulnar Anti Sensory (5th Digit) Wrist 2.1 79.1 Wrist 5th Digit 2.1 14.0 67 Motor Summary Table Stim Site NR Onset (ms) O-P Amp (mV) Site1 Site2 Delta-0 (ms) Dist (cm) Itz (m/s) Left Median Motor (Abd Poll Brev) Wrist 3.4 4.1 Elbow Wrist 4.9 29.0 59 Elbow 8.3 2.6 Right Median Motor (Abd Poll Brev) Wrist 3.5 10.2 Elbow Wrist 4.4 28.0 64 Elbow 7.9 5.6 Left Ulnar Motor (Abd Dig Minimi) Wrist 2.1 6.3 A Elbow Wrist 5.1 30.0 59 A Elbow 7.2 2.9 Right Ulnar Motor (Abd Dig Minimi) Wrist 2.0 6.5 A Elbow Wrist 4.6 29.0 63 A Elbow 6.6 6.0 F Wave Studies NR F-Lat (ms) L-R F-Lat (ms) Left Median (Mrkrs) (Abd Poll Brev) 27.15 0.59 Right Median (Mrkrs) (Abd Poll Brev) 26.55 0.59 Left Ulnar (Mrkrs) (Abd Dig Min) 27.17 1.59 Right Ulnar (Mrkrs) (Abd Dig Min) 25.58 1.59 EMG Side Muscle Nerve Root Ins Act Fibs Amp Dur Recrt Comment Right 1stDorInt Ulnar C8-T1 Nml Nml Nml Nml Nml Right Ext Indicis Radial (Post Int) C7-8 Nml Nml Nml Nml Nml Right Ext Digitorum Radial (Post Int) C7-8 Nml Nml Nml Nml Nml Right BrachioRad Radial C5-6 Nml Nml Nml Nml Nml Right PronatorTeres Median C6-7 Nml Nml Nml Nml Nml Right Abd Poll Brev Median C8-T1 Nml Nml Nml Nml Nml Right ABD Dig Min Ulnar C8-T1 Nml Nml Nml Nml Nml Left 1stDorInt Ulnar C8-T1 Nml Nml Nml Nml Nml Left Ext Indicis Radial (Post Int) C7-8 Nml Nml Nml Nml Nml Left Ext Digitorum Radial (Post Int) C7-8 Nml Nml Nml Nml Nml Left BrachioRad Radial C5-6 Nml Nml Nml Nml Nml Left PronatorTeres Median C6-7 Nml Nml Nml Nml Nml Left Abd Poll Brev Median C8-T1 Nml Nml Nml Nml Nml Left ABD Dig Min Ulnar C8-T1 Nml Nml Nml Nml Nml MTDD
== END 2024-05-07 13:02 | disposition home or self-care (01) ==
PROVIDERS: PCP Family Medicine; Visit Provider Surgery
DX: G56.03 Carpal tunnel syndrome, bilateral upper limbs (principal); M79.2 Neuralgia and neuritis, unspecified
CPT/HCPCS: 95886; 95911

== ENCOUNTER 2024-08-28 11:35 | Outpatient (CLI) | payer OTHER, SELFPAY ==
[2024-08-28 12:09] LABS: Basophils Percent Auto 0.2 % (0.2-1.2); Eosinophils Absolute Auto 0.1 K/mm3 (0-0.3); Eosinophils Percent Auto 2.9 % (0-4.4); Hematocrit 44.8 % (37.0-47.0); Hemoglobin 15.3 g/dL (12.0-15.0); Immature Granulocyte Absolute 0.01 K/mm3 (0.00-0.031); Immature Granulocyte Percent A 0.2 % (0-0.5); Lymphocytes Absolute Auto 1.06 K/mm3 (0.9-3.2); Lymphocytes Percent Auto 23.9 % (18.3-44.2); Mean Corpuscular HGB Conc 34.2 g/dl (32-36); Mean Corpuscular Hemoglobin 32.3 pg (26-34); Mean Corpuscular Volume 94.5 fl (80-100); Mean Platelet Volume 9.9 fl (7.4-10.4); Monocytes Absolute Auto 0.4 K/mm3 (0.1-0.6); Monocytes Percent Auto 8.6 % (2.6-8.5); Neutrophils Absolute Auto 2.9 K/mm3 (1.3-6.7); Neutrophils Percent Auto 64.2 % (45.5-73.1); Platelet Count Result 223 k/mm3 (150-375); Red Blood Count 4.74 M/mm3 (4.2-5.4); Red Cell Distribution Width 13.1 % (11.5-14.5); White Blood Count 4.4 K/mm3 (4.5-10.0)
[2024-08-28 12:34] LABS: Alanine Aminotransferase 51 U/L (6-35); Albumin Level 4.5 g/dL (3.5-5.1); Alkaline Phosphatase 49 U/L (38-126); Anion Gap 10 mmol/L (4-12); Aspartate Amino Transferase 39 U/L (14-36); Bilirubin,Total 0.6 mg/dL (0.2-1.3); Blood Urea Nitrogen 10 mg/dL (7-17); Carbon Dioxide 27 mmol/L (22-30); Chloride 101 mmol/L (98-107); Estimated Glomerular Filt Rate > 60; Glucose 96 mg/dL (65-110); Sodium 138 mmol/L (137-145)
[2024-08-28 12:41] LABS: Iron 47 ug/dL (37-170); Transferrin 253 mg/dL (206-381)
--- OUTSIDE RECORDS SUMMARY | 2024-08-28 13:35 | XMS_ITS | Clinical Summary ---
Author Organization [facility] Address [address] [place] [address] Phone Care Team Providers Care Tracer Bullet Charging Machine Operator Name Role Phone Mateusz Estrada MD Primary Care Provider [phone] Allergies Active Allergy Reactions Criticality Noted Date Comments [place] Pollen Swelling High 03/29/2019 Egg White (Diagnostic) Swelling High 03/29/2019 Sulfa Antibiotics Hives High 03/29/2019 Wheat Dextrin Swelling High 03/29/2019 Medications albuterol (PROAIR HFA) 108 (90 Base) MCG/ACT Aerosol SolutionIndicat ions:Wheezing take 2 Puffs by inhalation every 4 hours as needed for Wheezing or Cough. 1 Inhaler 9 Active montelukast (SINGULAIR) 10 MG TabletIndicatio ns:Wheezing Take 1 Tab by mouth every evening. 90 Tab 3 9 Active albuterol (PROVENTIL, VENTOLIN) (2.5 MG/3ML) 0.083% Nebulizer SolnIndications :Wheezing 3 mL by Nebulization route every 4 hours as needed for Wheezing. 30 Vial 9 Active methylPREDNISol one (MEDROL) 4 MG Tablet Therapy PackIndications :Wheezing Use as per instructions on package. 21 Tab 9 Active Butalbital-APAP -Caffeine 50-300-40 MG Capsule Take 1 Cap by mouth every 4 hours as needed (headache) for up to 20 doses. 20 Cap 0 Active SUMAtriptan (Imitrex) 50 MG Tablet Take 1 Tab by mouth once as needed for Migraine for up to 9 doses. Use as directed. May repeat dose in 2 hours if headache recurs. 9 Tab 0 Active Active Problems No known active problems Family History Medical History Relation Name Comments Diabetes Mother Relation Name Status Comments Mother Social History Tobacco Use Types Packs/Day Years Used Date Smoking Tobacco: Never Smokeless Tobacco: Never [facility] Utilities Answer Date Recorded In the past 12 months has [email or web address] electric, gas, oil, or water company threatened to shut off services in your home? No 07/21/2023 Social Connection and Isolat ion Panel [NHANES] Answer Date Recorded In a typical week, how many times do you talk on the phone with family, friends, or neighbors? Twice a week 07/21/2023 How often do you get togethe r with friends or relatives? Once a week 07/21/2023 How often do you attend chur ch or mandaen services? More than 4 times per year 07/21/2023 Do you belong to any clubs o r organizations such as taoist groups, unions, fraternal or athletic groups, or school groups? Yes 07/21/2023 How often do you attend meet ings of the clubs or organizations you belong to? More than 4 times per year 07/21/2023 Are you , , di vorced, , never , or living with a partner? 07/21/2023 AUDIT-C Answer Date Recorded Q1: How often do you have a drink containing alc ohol? Monthly or less 07/21/2023 Q2: How many drinks containi ng alcohol do you have on a typical day when you are drinking? 1 or 2 07/21/2023 Q3: How often do you have si x or more drinks on one occasion? Never 07/21/2023 Overall Financial Resource Strain (CARDIA) Answe r Date Recorded How hard is it for you to pa y for the very basics like food, housing, medical care, and heating? Very hard 07/21/2023 [facility] - Occupational Stress Questionnaire Answer Date Recorded Do you feel stress - tense, restless, nervous, or anxious, or unable to sleep at night because your mind is troubled all the time - these days? Not at all 07/21/2023 Exercise Vital Sign Answer Date Recorde d On average, how many days pe r week do you engage in moderate to strenuous exercise (like a brisk walk)? 2 days 07/21/2023 On average, how many minutes do you engage in exercise at this level? 20 min 07/21/2023 Hunger Vital Sign Answer Date Recorded Within the past 12 months, y ou worried that your food would run out before you got the money to buy more. Often true 07/21/19 24 Within the past 12 months, t he food you bought just didn't last and you didn't have money to get more. Often true 07/21/2023 PRAPARE - Transportation Answer Date Re corded In the past 12 months, has l ack of transportation kept you from medical appointments or from getting medications? No 07/03 In the past 12 months, has l ack of transportation kept you from meetings, work, or from getting things needed for daily living? No 07/21/2023 Housing Stability Vital Sign Answer Jose e Recorded In the last 12 months, was t here a time when you were not able to pay the mortgage or rent on time? No 07/21/2023 In the last 12 months, how many places have you lived? 1 07/21/2023 In the last 12 months, was t here a time when you did not have a steady place to sleep or slept in a [place] [facility] [place] (including now)? Yes 07/21/2023 Comments No Sex and Gender Information Value Date Recorded Sex Assigned at Not on file Legal Sex Female 10:15 AM CDT Gender Identity Not on file Sexual Orientation Not on file Last Filed Vital Signs Vital Sign Reading Time Taken Comments Blood Pressure 110/61 05/08/2023 12:00 AM SLASHER HAND Pulse 77 05/08/2023 12:00 AM SLASHER HAND Temperature 36.3 C (97.3 F) 05/07/2023 9:42 PM SLASHER HAND Respiratory Rate 18 05/08/2023 12:00 AM SLASHER HAND Oxygen Saturation 99% 05/08/2023 12:00 AM SLASHER HAND Inhaled Oxygen Concentration - - Weight 62.1 kg (137 lb) 05/07/2023 9:42 PM SLASHER HAND Height 162.6 cm (5' 4 ) 05/07/2023 9:42 PM SLASHER HAND Body Mass Index 23.52 05/07/2023 9:42 PM SLASHER HAND Plan of Treatment Health Maintenance Due Date Last Done Comments Hepatitis C Virus (HCV) Screening 1978 TdaP Immunization 1978 Hepatitis B Immunization (1 of 3 - 19+ 3-dose series) 1997 Pap Smear 10/18/1999 Cervical Cancer Screening (CCS) 2008 HPV/Cotest 2008 Mammogram 04/18/2020 04/18/2019 Colonoscopy 10/18/2023 Colorectal Cancer Screening 10/18/2023 Influenza Immunization (#1) 2024 SARS-COV-2 Immunization ( - 2023- season) 2024 Respiratory Syncytial Virus (RSV) Immunization (Adult) (1 - 1-dose 75+ series) 2053 Discussion re Starting/Frequ ency of Mammograms Completed 04/18/2019 Meningococcal Immunization (ACWY) Aged Out No longer eligible based on patient's age to complete this topic Pneumococcal Immunization Combined Aged Out No longer eligible based on patient's age to complete this topic Rotavirus Immunization Aged Out No lo nger eligible based on patient's age to complete this topic Procedures Procedure Name Priority Date/Time Associated Diagnosis Comments CODY SCREENING BILATERAL DIGITAL W CAD W JULIANA Routine 04/18/2019 4:02 PM CDT Encounter for screening mammogram for malignant neoplasm of breast from Last 3 Months or Most Recently Relevant to Health Maintenance Results * CODY SCREENING BILATERAL DIGITAL W CAD W JULIANA (04/18/2019 4:02 PM CDT) Anatomical Region Laterality Modality breast Bilateral Mammography 04/18/2019 3:25 PM CDT Narrative 04/19/2019 1:12 PM CDT - CODY SCREENING BILATERAL DIGITAL W CAD W JULIANA BILATERAL DIGITAL SCREENING MAMMOGRAM 3D/2D WITH CAD WITH MEDIOLATERAL OBLIQUE CRANIOCAUDAL: 04/18/2019 The study was acquired using digital technology and interpreted from soft copy. Current study was also evaluated with ICAD version 7.2. CLINICAL: Baseline screening. Patient has no complaints. No personal history of cancer. Maternal grandmother with a history of breast cancer. COMPARISONS: No prior exams were available for comparison. BREAST TISSUE:The tissue of both breasts is heterogeneously dense. This may lower the sensitivity of mammography. FINDINGS: No significant masses, calcifications, or other findings are seen in either breast. IMPRESSION: BI-RAD 1 NEGATIVE There is no mammographic evidence of malignancy. A 1 year screening mammogram is recommended. The patient has been or will be contacted. The patient will be entered into a reminder system with a target due date of 1 year for her next screening exam. Electronically signed by: Deonna Clemente M.D. /penrad:04/19/2019 10:18:18 Upholstery Bundler: Lillie Domínguez (R), [facility] letter sent: Normal Exam Reading location: [place] BI-RADS: 1 Negative Procedure Note Deonna Clemente MD - 04/19/2019 - CODY SCREENING BILATERAL DIGITAL W CAD W JULIANA BILATERAL DIGITAL SCREENING MAMMOGRAM 3D/2D WITH CAD WITH MEDIOLATERAL OBLIQUE CRANIOCAUDAL: 04/18/2019 The study was acquired using digital technology and interpreted from soft copy. Current study was also evaluated with Mobili[employer] version 7.2. CLINICAL: Baseline screening. Patient has no complaints. No personal history of cancer. Maternal grandmother with a history of breast cancer. COMPARISONS: No prior exams were available for comparison. BREAST TISSUE:The tissue of both breasts is heterogeneously dense. This may lower the sensitivity of mammography. FINDINGS: No significant masses, calcifications, or other findings are seen in either breast. IMPRESSION: BI-RAD 1 NEGATIVE There is no mammographic evidence of malignancy. A 1 year screening mammogram is recommended. The patient has been or will be contacted. The patient will be entered into a reminder system with a target due date of 1 year for her next screening exam. Electronically signed by: Deonna bautista/penrad:04/19/2019 10:18:18 Upholstery Bundler: Lillie Domínguez (R), [facility] letter sent: Normal Exam Reading location: [place] BI-RADS: 1 Negative Amrit Cabrera [facility] MAMMO ORDERABLES Final Resul t from Last 3 Months or Most Recently Relevant to Health Maintenance Insurance MEDICAID [employer] [facility] Care Teams Tracer Bullet Charging Machine Operator Relationship Specialty Start Date End Date Mateusz Estrada MD [address] [place] [address] [place] [address] PCP - General Family Medicine 03/29/19
--- OUTSIDE RECORDS SUMMARY | 2024-08-28 13:35 | XMS_ITS | Referral Summary ---
Author Organization [facility] Address [address] [place] [address] Care Team Providers Care Functional Director Name Role Phone Mateusz Estrada MD Primary Care Provider [phone] Mateusz Estrada MD Unavailable [phone] Allergies Active Allergy Reactions Criticality Noted Date Comments [place] Pollen Extract Swelling High 03/29/2019 Egg White Swelling High 03/29/2019 Sulfa (Sulfonamide Antibiotics) Hives Medium 07/0 10/2018 Wheat Dextrin Swelling High 03/29/2019 Medications montelukast (SINGULAIR) 10 mg tablet Take 1 tablet every day by oral route for 30 days. 9 Active albuterol HFA (PROVENTIL HFA,VENTOLIN HFA,PROAIR HFA) 90 mcg/actuation inhaler Inhale 2 puffs every 4 hours by inhalation route as needed. Active albuterol 2.5 mg /3 mL (0.083 %) nebulizer solution Active topiramate (TOPAMAX) 25 mg tabletIndication s:Chronic migraine without aura without status migrainosus, not intractable Take one tablet (25 mg) po bid for one week, then 2 tablets (50 mg ) po bid. 120 tablet 3 0 Active SUMAtriptan (IMITREX) 100 mg tabletIndication s:Migraine Take one tabet po q2h prn as soon as feel headache is coming. No more than 2 tablets in 24 hours. 9 tablet 3 0 Active Active Problems Problem Noted Date Diagnosed Date Chronic migraine without aur a without status migrainosus, not intractable 06/19/2020 Bloating 09/06/2019 Assessment & Plan (09/06/2019 1:58 PM SACK FILLER): See abdominal distention. Abdominal distention 09/06/2019 Assessment & Plan (09/06/2019 1:55 PM SACK FILLER): Pt c/o bloating and abdominal distention that occurs almost daily. Ongoing for many years. She says she found that she has a number of food intolerances and has to avoid things with corn, egg white, and gluten. Pt says her abdomen gets very distended at times and makes her look . She says the distention can get really bad sometimes and cause a lot of discomfort. Most of the discomfort she feels is in LUQ. She can have problems with having a BM when she has this bloating as well. She said she noticed that when she was making her own Kombucha and sauerkraut, she felt better. She said TUMS takes the edge off of the bloating sensation. Appears patient has multiple food intolerances. Will have her start a food journal to track what she is eating when her symptoms occur. Will have her start probiotics daily. Can use gas-x or phazyme prn. No other worrisome signs at this time and overall exam was unremarkable. Food intolerance 09/06/2019 Assessment & Plan (09/06/2019 1:57 PM SACK FILLER): Pt had testing done and found food intolerance to gluten, corn, and egg white. Pt also says she did notice that after she has damir and peppers. Keep food journal and track when she gets symptoms and what she ate. Social History Tobacco Use Types Packs/Day Years Used Date Smoking Tobacco: Never Smokeless Tobacco: Never Alcohol Use Standard Drinks/Week Comments Yes 0 (1 standard drink = 0.6 oz pur e alcohol) weekly Personal Safety Answer Date Recorded Getting School Help Needed Not on file 09/16 Comments Unknown Sex and Gender Information Value Date Recorded Sex Assigned at Not on file Legal Sex Female 5:47 PM CDT Gender Identity Not on file Sexual Orientation Not on file Last Filed Vital Signs Vital Sign Reading Time Taken Comments Blood Pressure 106/68 06/19/2020 8:40 AM SACK FILLER Pulse 87 06/19/2020 8:40 AM SACK FILLER Temperature 35.8 C (96.4 F) 06/19/2020 8:40 AM SACK FILLER Respiratory Rate 20 09/06/2019 1:04 PM SACK FILLER Oxygen Saturation 96% 09/06/2019 1:04 PM SACK FILLER Inhaled Oxygen Concentration - - Weight 68.6 kg (151 lb 3.2 oz) 06/19/2020 8:40 A M SACK FILLER Height 162.6 cm (5' 4 ) 06/19/2020 8:40 AM SACK FILLER Body Mass Index 25.95 06/19/2020 8:40 AM SACK FILLER Plan of Treatment Not on file Insurance [facility] Care Teams Functional Director Relationship Specialty Start Date End Date Mateusz Estrada MD PCP - General 01/03/19 Mateusz Estrada MD Referring Physician Family Medicine 08/06/19
--- OUTSIDE RECORDS SUMMARY | 2024-08-28 13:35 | XMS_ITS | Referral Summary ---
Author Organization [facility] Address [address] [place] [address] Care Team Providers Care Ladies Suit Operator Name Role Phone Mateusz Estrada Primary Care Provider [phone] Source Comments [facility],non-owned Affiliates and Associated Physician Practices is amultiple site organization consisting of ambulatory clinics and hospital sitesin [place], [place], [place] and [place]. This disclosure is being madepursuant to the Care Everywhere program and may not contain all information available regarding this patient. Last updated 18.[facility] Encounters Date Type Department Care Team Description 06/03/2024 Travel 06/03/2024 11:30 AM POWER BARKER Procedure visit [facility] - [address] [phone] Arley Lopez MD Fatty liver ; NAFLD (nonalcoholic fatty liver disease) 06/03/2024 9:00 AM POWER BARKER Office Visit [facility] - [address] [address] Arley Lopez MD Campbell, Shirley M, BUILDING SERVICES TECHNICIAN-AEROSPACE STRESS ENGINEER 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) from Last 3 Months Allergies Active Allergy Reactions Criticality Noted Date Comments Waller Pollen Swelling High 03/29/2019 Egg White (Diagnostic) Swelling High 03/29/2019 Sulfa Antibiotics Urticaria High 03/29/2019 Sulfa Drugs Skin Reactions Medium 11/10/2016 Sumatriptan Nausea and/or Vomiting High 06/03/2024 Wheat Bran GI Discomfort 04/01/2024 Medications * Be aware that medications may not be up to date on this document. Alwaysverify current medications with the patient. Medication Sig Dispensed Refills Start Date End Date Status cyclobenzaprine (FLEXERIL) 5 MG tablet Take 5 mg by mouth q8h PRN. 30 tablet 1 11/10/2016 Active albuterol HFA (Proventil; Ventolin; Proair) 108 (90 Base) MCG/ACT inhaler Inhale 2 (two) puffs by mouth every 6 hours as needed Active acetylcysteine (N-Acetyl Cysteine) 600 MG capsule Take 1 (one) capsule by mouth 2 times daily As needed Active EPINEPHrine (Epipen) 0.3 MG/0.3ML auto-injector penIndications:Urt icaria,Food allergy Inject 0.3 mL into muscle once as needed for Anaphylaxis 2 Each 04/01/2024 Active cetirizine (ZyrTEC) 10 MG tablet Take 1 (one) tablet by mouth once daily as needed Active rizatriptan (Maxalt) 10 MG tablet Take 1 (one) tablet by mouth as needed for Migraine Active acetaminophen (Tylenol) 500 MG tablet Take 1 (one) tablet by mouth as needed for Fever or Pain Maximum allowable Acetaminophen amount = 4 Grams (4000 mg) / 24 hours. Active Active Problems Problem Noted Date Diagnosed Date Metabolic dysfunction-associated steatohepatitis (MASH) 06/03/2024 Overview (06/03/2024): 06/03/24 Fibroscan CAP 332 LSM kPa 3.7 Social History Tobacco Use Types Packs/Day Years Used Date Smoking Tobacco: Never Tobacco Cessation:Counseling Given: Not Answered Alcohol Use Standard Drinks/Week Comments Yes 0 (1 standard drink = 0.6 oz pur e alcohol) i drink wine per month. PHQ-2 Answer Date Recorded Patient Health Questionnaire-2 Score 0 04/01/2024 Sex and Gender Information Value Date Recorded Sex Assigned at Not on file Gender Identity Not on file Sexual Orientation Not on file Last Filed Vital Signs Vital Sign Reading Time Taken Comments Blood Pressure 116/74 06/03/2024 9:09 AM POWER BARKER Pulse 81 06/03/2024 9:09 AM POWER BARKER Temperature 36.8 C (98.2 F) 06/03/2024 9:09 AM POWER BARKER Respiratory Rate 20 04/01/2024 1:10 PM CDT Oxygen Saturation 100% 06/03/2024 9:09 AM POWER BARKER Inhaled Oxygen Concentration - - Weight 67 kg (147 lb 9.6 oz) 06/03/2024 9:09 AM POWER BARKER Height 162.6 cm (5' 4 ) 06/03/2024 9:09 AM POWER BARKER Body Mass Index 25.34 06/03/2024 9:09 AM POWER BARKER Plan of Treatment Upcoming Encounters Date Type Department Care Team (Late st Contact Info) Description 09/03/2024 11:30 AM POWER BARKER Procedure visit [facility] - GI [address] [place] [phone] 09/03/2024 12:30 PM POWER BARKER Office Visit [facility] GI [address] [place] [address], [place] [phone] Kasie Whitmore, BUILDING SERVICES TECHNICIAN-AEROSPACE STRESS ENGINEER [address] DIV [place] [phone] 10/07/2024 2:00 PM CDT Office Visit [facility] - Allergy [address] [place] [phone] Radha Salcido, DO [address] [facility] DIV OF ALLERGY/[place] [address] Goals Goal Patient Goal Type Associated Problems Recent Progress Patient-Stated? Author Medication Management General Radha Alvares, RN Note: Expected end date: Ongoing Interventions: Take all medications as prescribed Let your doctor know right away about any changes in your medications Make sure to request a refill of your medication at least one week prior to your last dose Procedures Procedure Name Priority Date/Time Associated Diagnosis Comments ALLERGEN EGG WHITE IGE W COMPONENT RFLX Routine 06/03/2024 3:08 PM POWER BARKER Food allergy Food intolerance in adult ALLERGEN SESAME SEED IGE Routine 06/03/2024 3:08 PM POWER BARKER Food allergy Food intolerance in adult ALLERGEN GREEN PEPPER IGE Routine 06/03/2024 3:08 PM POWER BARKER Food allergy Food intolerance in adult ALLERGEN WHEAT IGE Routine 06/03/2024 3: 08 PM POWER BARKER Food allergy Food intolerance in adult ALLERGEN SHRIMP IGE Routine 06/03/2024 3 :08 PM POWER BARKER Food allergy Food intolerance in adult ALLERGEN SILVER BIRCH TREE IGE Routine 06/03/2024 3:08 PM POWER BARKER Food allergy Food intolerance in adult ALLERGEN RESPIRATORY PNL REGION 8 ([place]) Routine 06/03/2024 3:08 PM POWER BARKER Food allergy Food intolerance in adult SD LIVER ELASTOGRAPHY Routine 06/03/2024 9:32 AM POWER BARKER Fatty liver PAP IMAGE-GUIDED W HPV Routine 11/10/2016 12:00 AM CDT from Last 3 Months or Most Recently Relevant to Health Maintenance Results * ALLERGEN GREEN PEPPER IGE (06/03/2024 3:08 PM POWER BARKER) Allergen Green Pepper <0.10 Class 0 kU/L [facility] INSURANCE BILL Blood BLOOD SPECIMEN / Unknown 06/03/2024 3:08 PM POWER BARKER 06/03/2024 Narrative [facility] INSURANCE BILL - 06/09/2024 3:06 PM POWER BARKER Test(s) [id number] Green Peppercorn were developed and had performance characteristics determined by [facility]. These tests have not been cleared or approved by the U.S. Food and Drug Administration. The FDA has determined that such clearance or approval is not necessary. These tests are used for clinical purposes. These should not be regarded as investigational or for research. Performed at: [address] [place] [id number] Treatment Specialist: Rustam Garcia MD, Phone: [phone] Jeff Aldana MD LAB - CHEMISTRY ORDE RABLES [facility] INSURANCE BILL [address] [place] [address] * (ABNORMAL) ALLERGEN EGG WHITE IGE W COMPONENT RFLX (06/03/2024 3:08 PM POWER BARKER) Allergen Egg White 0.18(A) Class 0/I kU/L [facility] INSURANCE BILL Blood BLOOD SPECIMEN / Unknown 06/03/2024 3:08 PM POWER BARKER 06/03/2024 Narrative [facility] INSURANCE BILL - 06/07/2024 7:12 AM POWER BARKER Performed at: - [address] [id number] Treatment Specialist: Rustam Garcia MD, Phone: [phone] Jeff Aldana MD LAB - SEROLOGY ORDER LIANG Performing Organization Address City/[facility]/ZIP Co de Phone Number [facility] INSURANCE BILL [address] [place] [address] * ALLERGEN SILVER BIRCH TREE IGE (06/03/2024 3:08 PM POWER BARKER) Allergen Common Silver Birch <0.10 Class 0 kU/L [facility] INSURANCE BILL Blood BLOOD SPECIMEN / Unknown 06/03/2024 3:08 PM POWER BARKER 06/03/2024 Narrative [facility] INSURANCE BILL - 06/07/2024 7:12 AM POWER BARKER Performed at: - [facility] [id number] Treatment Specialist: Rustam Garcia MD, Phone: [phone] Jeff Aldana MD LAB - SEROLOGY ORDER LIANG Performing Organization Address City/[facility]/ZIP Co de Phone Number [facility] INSURANCE BILL [address] [place] [address] * ALLERGEN SESAME SEED IGE (06/03/2024 3:08 PM POWER BARKER) Allergen Sesame Seed <0.10 Class 0 kU/L [facility] INSURANCE BILL Blood BLOOD SPECIMEN / Unknown 06/03/2024 3:08 PM POWER BARKER 06/03/2024 Narrative [facility] INSURANCE BILL - 06/07/2024 7:12 AM POWER BARKER Performed at: [address] [place] [id number] Treatment Specialist: Rustam Garcia MD, Phone: [phone] Jeff Aldana MD LAB - CHEMISTRY TREVON COLEMAN Performing Organization Address [facility] Phone Number [facility] INSURANCE BILL [address] [place] [address] * (ABNORMAL) ALLERGEN SHRIMP IGE (06/03/2024 3:08 PM POWER BARKER) Allergen Shrimp 0.34(A) Class I kU/L [facility] INSURANCE BILL Blood BLOOD SPECIMEN / Unknown 06/03/2024 3:08 PM POWER BARKER 06/03/2024 Narrative [facility] INSURANCE BILL - 06/07/2024 7:12 AM POWER BARKER Performed at: [address] [place] [id number] Treatment Specialist: Rustam Garcia MD, Phone: [phone] Jeff Aldana MD LAB - CHEMISTRY TREVON COLEMAN Performing Organization Address [facility] Number [email or web address] INS[facility] B[facility] [address] [place] [address] * ALLERGEN WHEAT IGE (06/03/2024 3:08 PM POWER BARKER) Allergen Wheat <0.10 Class 0 kU/L [facility] INSURANCE BILL Blood BLOOD SPECIMEN / Unknown 06/03/2024 3:08 PM POWER BARKER 06/03/2024 Narrative [facility] INSURANCE BILL - 06/07/2024 7:12 AM POWER BARKER Performed at: [address] [place] [id number] Treatment Specialist: Rustam Garcia MD, Phone: [phone] Jeff Aldana MD LAB - SEROLOGY ORDER LIANG Performing Organization Address [facility] Phone Number [facility] INSURANCE BILL [address] [place] [address] * (ABNORMAL) ALLERGEN RESPIRATORY PNL REGION 8 ([place]) (06/03/2024 3:08 PM POWER BARKER) Class Description Blood Comment [facility] INSURANCE BILL Comment: Levels of Specific IgE Class Description of Class ----- < 0.10 0 Negative 0.10 - 0.31 0/I Equivocal/Low 0.32 - 0.55 I Low 0.56 - 1.40 II Moderate 1.41 - 3.90 III High 3.91 - 19.00 IV Very High 19.01 - 100.00 V Very High >100.00 Very High IgE 208 6 - 495 IU/mL [facility] INSURANCE BILL Allergen Dermatophagoides pteronyssinus IgE 0.55(A) Class I kU/L [facility] INSURANCE BILL Allergen Dermatophagoides farinae 0.43(A) Class I kU/L [facility] INSURANCE BILL Allergen Cat Dander 66.70(A) Class V kU/L [facility] INSURANCE BILL Allergen Dog Dander 3.15(A) Class III kU/L [facility] INSURANCE BILL Allergen Mouse Urine <0.10 Class 0 kU/L [facility] INSURANCE BILL Allergen Bermuda Grass 1.91(A) Class III kU/L [facility] INSURANCE BILL Allergen Maged Grass 0.23(A) Class 0/I kU/L [facility] INSURANCE BILL Allergen Cockroach Estonian 0.39(A) Class I kU/L [facility] INSURANCE BILL Allergen Penicillin chrysogen 0.27(A) Class 0/I kU/L [facility] INSURANCE BILL Allergen C Herbarum 0.41(A) Class I kU/L [facility] INSURANCE BILL Allergen Aspergillus fumigatus 1.03(A) Class II kU/L [facility] INSURANCE BILL Allergen A Tenuis 5.32(A) Class IV kU/L [facility] INSURANCE BILL Allergen Maple <0.10 Class 0 kU/L [facility] INSURANCE BILL Allergen Mountain Holstein 3.02(A) Class III kU/L [facility] INSURANCE BILL Allergen Estillfork 0.14(A) Class 0/I kU/L [facility] INSURANCE BILL Allergen Elm <0.10 Class 0 kU/L [facility] INSURANCE BILL Allergen Caldwell 0.10(A) Class 0/I kU/L [facility] INSURANCE BILL Allergen Maple [place]uni[place]oko Alcova <0.10 Class 0 kU/L [facility] INSURANCE BILL Allergen Bricelyn Tree <0.10 Class 0 kU/L [facility] INSURANCE BILL Allergen White Arnold 0.25(A) Class 0/I kU/L [facility] INSURANCE BILL Allergen Pecan Smithland <0.10 Class 0 kU/L [facility] INSURANCE BILL Allergen White Manila <0.10 Class 0 kU/L [facility] INSURANCE BILL Allergen Short/Common Ragweed <0.10 Class 0 kU/L [facility] INSURANCE BILL Allergen Hong Konger Thistle 0.12(A) Class 0/I kU/L [facility] INSURANCE BILL Allergen Rough Pigweed <0.10 Class 0 kU/L [facility] INSURANCE BILL Allergen Rough Lei Elder 0.55(A) Class I kU/L [facility] INSURANCE BILL Blood BLOOD SPECIMEN / Unknown 06/03/2024 3:08 PM POWER BARKER 06/03/2024 Narrative [facility] INSURANCE BILL - 06/07/2024 7:12 AM POWER BARKER Performed at: [address] [place] [id number] Treatment Specialist: Rustam Garcia MD, Phone: [phone] Jeff Aldana MD LAB - CHEMISTRY TREVON COLEMAN Performing Organization Address City/State/[facility] Co de Phone Number [facility] INSURANCE BILL [address] [place] [address] * SD LIVER ELASTOGRAPHY (06/03/2024 9:32 AM POWER BARKER) Narrative Arley Mccann MD - 06/03/2024 9:32 AM POWER BARKER Arley Mccann MD 06/05/2024 10:15 PM Diagnosis: Fatty liver Patient confirms NPO 3 hours prior to procedure. Procedure explained. Date of Exam: 06/03/2024 Liver Stiffness: (LSM, kPa) median: 3.7 IQR/Median% (ideally < 30%): 9% CAP (controlled attenuation parameter): 332 Technical Difficulty: None Ordering Provider: Kasie Whitmore APRN Fibroscan interpretation: I have personally reviewed the Fibroscan report and associated tracings. The calculated Liver Stiffness Measurement (LSM, kPa) indicates that: The probability of advanced liver fibrosis is: low. The loss of ultrasound signal, (controlled attenuation parameter, CAP [dB/m]), indicates that the probability of hepatic steatosis is: high. Arley Longoria MD The following criteria are used to indicate the probability of advanced (stage 3-4) fibrosis: < 7.0 kPa: low 7.0-8.9 kPa: low to moderate 9.0-14.9 kPa: moderate 15-20 kPa: high > 20 kPa: very high Liver stiffness > 20 kPa is also associated with a high probability of complications of portal hypertension including varices and ascites. Liver stiffness > 50 kPa is associated with a high risk of variceal bleeding. These interpretations are based on the following published data: Dallas PJ, Mukesh M, Swathi M, et al. Accuracy of FibroScan controlled attenuation parameter and liver stiffness measurement in assessing steatosis and fibrosis in patients with nonalcoholic fatty liver disease. Gastroenterology 2019;156:7778-2567. Ritika MS, Ronn R, Van Natta ML, et al. Vibration-controlled transient elastography to assess fibrosis and steatosis in patients with nonalcoholic fatty liver disease. Clin Gastroenterol Hepatol 2019;17:156-163. Note that scores have been developed that incorporate the Fibroscan liver stiffness measurement from large cohorts of patients with liver biopsies to further refine the ability of Fibroscan to identify patients with MASH and advanced fibrosis. These include the FAST (Fibroscan-AST) score (Gary, 202) and the Agile3+ and Agile4 scores (Ritu, 202). Gary TA, Van Natta ML, Hayder M, Chalo A, et al. Validation of the accuracy of the FAST score for detecting patients with at-risk nonalcoholic steatohepatitis (KOO) in a [place] cohort and comparison to other non-invasive algorithms. PLoS ONE (2021) 17: [id number]. Ritu MENG, Andreas J, Dorothea SUÁREZ, et al. Enhanced diagnosis of advanced fibrosis and cirrhosis in individuals with NAFLD using FibroScan-based Agile scores. J Hepatol (2022) 78: 247-259. Fibroscan LSM can also be used with laboratory parameters without formulas to assess prognosis. According to the Baveno-VII criteria (Chung, 202), Fibroscan LSM <=15 kPa plus a platelet count of >=232o109/L rules out clinically significant portal hypertension (sensitivity and negative predictive value >90%) in patients with compensated advanced chronic liver disease. Chung R, Gabe J, Riley G, Narinder T, Klever Riley on behalf of the Baveno VII Faculty. Baveno VII--Renewing consensus in portal hypertension. J Hepatol (2021) 76: 959-974 Assessing the likelihood of advanced fibrosis in patients with intermediate liver stiffness measurement (LSM) by Fibroscan (e.g., 8-15 kPa) can be improved by also calculating the FIB-4 score (Paula et al. Hepatology Communications 2019;3:7435-2191) or NAFLD Fibrosis score (Verduzco et al. Clinical Gastroenterology and Hepatology 2019;17:4026-5533 using routine clinical data. Note: 1. Fibroscan cannot reliably identify earlier stages of fibrosis (ie distinguish F0 from F1 and F2) and thus a histologic stage cannot be predicted from the Fibroscan reading. 2. Liver stiffness can be increased by factors other than fibrosis including passive congestion, infiltrative processes, active alcoholism, recent moderate alcohol consumption in the 2 weeks before the exam, biliary obstruction and marked inflammation. The interpretation of the Fibroscan result provided above may not have taken such clinical factors into account. Disease etiology also influences Fibroscan cutoff values for fibrosis stages and the following cutoffs have been proposed (Beulah et al, Clin Gastro Hepatol 2015; 13:27-36): Cutoffs for Stage 3 and Stage 4 fibrosis respectively: Hepatitis B: >9 and >11.7 kPa Hepatitis C: >9.5 and >12.5 kPa HCV-HIV: >11 and >14 kPa Cholestatic liver diseases: >10 and >17.9 kPa MASLD/MASH: >10 and >14 kPa CAP estimates of steatosis: normal <200 dB/m mild 200 to 250 dB/m moderate 250-290 dB/m substantial > 290 dB/m (Note that Fibroscan is not a quantitative measure of liver fat.) These criteria are estimates and may change as additional supporting data becomes available. (This additional interpretive data was last updated 11/05/22.) [email or web address] Kasie Whitmore BUILDING SERVICES TECHNICIAN-AEROSPACE STRESS ENGINEER PROCEDURE/VT NOR SURGICAL ORDERABLES * PAP IMAGE-GUIDED LIQUID BASE W HPV (11/10/2016 12:00 AM CDT) Pap Image-Guided Liquid-Based with HPV Accession No: [id number] Specimen:Endocervi milka ThinPrep Slides:1 SPECIMEN ADEQUACY: SATISFACTORY FOR EVALUATION - Endocervical / Transformation Zone Component Present INTERPRETATION: NEGATIVE FOR INTRAEPITHELIAL LESION OR MALIGNANCY NOTE(S): HPV DIRECT - HPV Result to Follow This specimen was evaluated by the ThinPrep Imaging System along with an additional manual rescreening by a horticultural therapist and/or pathologist Interpretation performed by Gordy PRICE(ASCP). Electronically signed 11/11/2016 [facility] Endocervical 11/10/2016 11/11/2016 9 :36 AM CDT Narrative [facility] ([facility]) - 11/11/2016 4:28 PM CDT LMP->11/01/16 Flakito Ulloa PA-C LAB - PATHOLOGY/CYT OLOGY ORDERABLES [facility] ([facility]) from Last 3 Months or Most Recently Relevant to Health Maintenance Care Teams Ladies Suit Operator Relationship Specialty Start Date End Date Mateusz Estrada [facility] [address] [place] [address] PCP - General 04/01/24
--- OUTSIDE RECORDS SUMMARY | 2024-08-28 13:35 | XMS_ITS | Clinical Summary ---
Author Organization [facility] Address [address] [place] [address] Care Team Providers Care Assistant Boys Track Coach Name Role Phone Mateusz Estrada MD Primary Care Provider + Allergies Active Allergy Reactions Criticality Noted Date Comments [place] Pollen Extract Swelling High 03/29/2019 Egg White Swelling High 03/29/2019 Niacin Rash Low 08/22/2024 Red blotches that didn't itch but hurt Sulfa (Sulfonamide Antibiotics) Hives High 03/29/2019 Wheat Dextrin Swelling High 03/29/2019 Medications albuterol sulfate HFA 90 mcg/actuation aerosol inhaler Take 1 Puff by inhalation every 6 hours as needed. Active cetirizine (ZyrTEC) 10 mg tablet Take 10 mg by mouth daily. Active acetaminophen (TYLENOL) 325 mg tablet Take 325 mg by mouth. Active cyclobenzaprin e (FLEXERIL) 10 mg tablet Take 10 mg by mouth 3 times daily as needed for Spasm. Active CURCUMIN, BULK, MISC by Misc.(Non-Drug; Combo Route) route. Active CALCIUM CARBONATE-BRONSON MIN D3 ORAL Take by mouth. Act adam OTHER 5-MTHFR supplement from triquera 15mg once daily Active Magnesium Oxide 420 mg Tablet Take 420 mg by mouth daily. Active OTHER Take 1 Capsule by mouth daily. AMPK Metabolic Activator Calcium Carbonate 130mg Hesperidin 500mg Actiponin [place] Extract 450mg Active Active Problems No known active problems Encounters Date Type Department Care Team Description 08/22/2024 11:30 AM MANAGER PRINTING Office Visit [facility] - [place] [address] [place] [address] Harjinder Rollins MD Hereditary hemochromatosis (Primary Dx) 08/20/2024 External Device Data STL ABSTRACTION Provider, Abstract 07/24/2024 External Device Data STL ABSTRACTION Provider, Abstract 07/24/2024 External Device Data STL ABSTRACTION Provider, Abstract 07/09/2024 External Device Data STL ABSTRACTION Provider, Abstract from Last 3 Months Family History Medical History Relation Name Comments No Known Problems Child 1 No Known Problems Child 2 No Known Problems Child 3 No Known Problems Child 4 Diabetes Mother No Known Problems Sister 1 No Known Problems Sister 2 No Known Problems Sister 3 Relation Name Status Comments Child 1 Alive Child 2 Alive Child 3 Alive Child 4 Alive Father Alive Mother Alive Sister 1 Alive Sister 2 Alive Sister 3 Alive Social History Tobacco Use Types Packs/Day Years Used Date Smoking Tobacco: Never Smokeless Tobacco: Never Tobacco Cessation:Counseling Given: Not Answered Alcohol Use Standard Drinks/Week Comments Yes 0 (1 standard drink = 0.6 oz pur e alcohol) Socially Comments Unknown Sex and Gender Information Value Date Recorded Sex Assigned at Not on file Legal Sex Female 1:23 PM CDT Gender Identity Not on file Sexual Orientation Not on file Last Filed Vital Signs Vital Sign Reading Time Taken Comments Blood Pressure 97/61 08/22/2024 11:21 AM MANAGER PRINTING Pulse 81 08/22/2024 11:21 AM MANAGER PRINTING Temperature 36.4 C (97.6 F) 08/22/2024 11:21 AM MANAGER PRINTING Respiratory Rate 17 08/22/2024 11:21 AM MANAGER PRINTING Oxygen Saturation 97% 08/22/2024 11:21 AM MANAGER PRINTING Inhaled Oxygen Concentration - - Weight 68.1 kg (150 lb 3.2 oz) 08/22/2024 11:21 AM MANAGER PRINTING Height 162.6 cm (5' 4 ) 01/10/2024 10:39 AM CDT Body Mass Index 25.78 01/10/2024 10:39 AM CDT Plan of Treatment Upcoming Encounters Date Type Department Care Team (Late st Contact Info) Description 02/05/2025 1:15 PM CDT Office Visit [facility] - [place] [address] [place] [address] Harjinder Rollins MD [facility] [address] [place] [address] Health Maintenance Due Date Last Done Comments Pre-Diabetes and Diabetes Screening 1978 DTAP/TDAP/TD VACCINES (1 - Tdap) 1997 HEPATITIS B VACCINES (1 of 3 - 19+ 3-dose series) 1997 CERVICAL CANCER SCREENING 2008 Preventative Visit-Managed Medicaid 04/09/2020 04/08/2019 BREAST CANCER SCREENING 04/18/2020 04/18/2019 COLORECTAL SCREENING 10/18/2023 Colorectal Cancer Screening 10/18/2023 FIT-DNA Q 3 years 10/18/2023 FIT/FOBT Q 1 year 10/18/2023 Flex Sig/CT Colonography Q 5 years 10/18/2023 INFLUENZA VACCINE (#1) 2024 HPV VACCINES Aged Out No longer eligi ble based on patient's age to complete this topic Insurance [facility] MEDICAID Care Teams Assistant Boys Track Coach Relationship Specialty Start Date End Date Mateusz Estrada MD [address] [place] [address] [address] PCP - General Family Practice 12/22/23
--- OUTSIDE RECORDS SUMMARY | 2024-08-28 13:35 | XMS_ITS | Clinical Summary ---
Author Organization [facility] [employer] Address [address] [place] [address] Care Team Providers Care Dynamics Ax Developer Name Role Phone Mateusz Estrada Primary Care Provider [phone] Source Comments [facility] [employer],non-owned Affiliates and Associated Physician Practices is amultiple site organization consisting of ambulatory clinics and hospital sitesin [place], [place], [place] and [place]. This disclosure is being madepursuant to the Care Everywhere program and may not contain all information available regarding this patient. Last updated 18.[facility] [employer] Allergies Active Allergy Reactions Criticality Noted Date Comments [place] Pollen Swelling High 03/29/2019 Egg White (Diagnostic) [...] 06/03/24 Fibroscan CAP 332 LSM kPa 3.7 Encounters Date Type Department Care Team Description 06/03/2024 11:30 AM CHIROPRACTIC CARE Procedure visit [facility] - [address] [phone] Arley Lopez MD Fatty liver ; NAFLD (nonalcoholic fatty liver disease) 06/03/2024 9:00 AM CHIROPRACTIC CARE Office Visit [facility] - [address] [phone] Arley Lopez MD Campbell, Shirley M, RECRUITING OPERATIONS CONSULTANT-ORDER ENTRY CLERK 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) 06/03/2024 Travel from Last 3 Months Family History Medical History Relation Name Comments None Known Brother Status: Alive Heart Disease Father Status: Alive None Known Maternal Grandfather Status: None Known Maternal Grandmother Status: Diabetes Mother Status: Alive None Known Paternal Grandfather Status: None Known Paternal Grandmother Status: Alive None Known Sister Status: Alive Relation Name Status Comments Brother Father Maternal Grandfather Maternal Grandmother Mother Paternal Grandfather Paternal Grandmother Sister Social History Tobacco Use Types Packs/Day Years [...] Comments Blood Pressure 116/74 06/03/2024 9:09 AM CHIROPRACTIC CARE Pulse 81 06/03/2024 9:09 AM CHIROPRACTIC CARE Temperature 36.8 C (98.2 F) 06/03/2024 9:09 AM CHIROPRACTIC CARE Respiratory Rate 20 04/01/2024 1:10 PM CDT Oxygen Saturation 100% 06/03/2024 9:09 AM CHIROPRACTIC CARE Inhaled Oxygen Concentration - - Weight 67 kg (147 lb 9.6 oz) 06/03/2024 9:09 AM CHIROPRACTIC CARE Height 162.6 cm (5' 4 ) 06/03/2024 9:09 AM CHIROPRACTIC CARE Body Mass Index 25.34 06/03/2024 9:09 AM CHIROPRACTIC CARE Plan of Treatment Upcoming Encounters Date Type Department Care Team (Late st Contact Info) Description 09/03/2024 11:30 AM CHIROPRACTIC CARE Procedure visit [facility] - GI [address] [place] [phone] 09/03/2024 12:30 PM CHIROPRACTIC CARE Office Visit [facility] GI [address] [place] [phone] Kasie Whitmore, RECRUITING OPERATIONS CONSULTANT-ORDER ENTRY CLERK [address] [place] [address] [place] [phone] 10/07/2024 2:00 PM CDT Office Visit [facility] - Allergy [address] [place] [phone] Radha Salcido, DO [address] [facility] DIV [place] [phone] Health Maintenance Due Date Last Done Comments COLOGUARD (AGES 45-75) - COL ON CA SCREENING 1978 COLON MONITORING 1978 COLONOSCOPY - COLON CA SCREENING 1978 CT COLONOGRAPHY - COLON CA SCREENING 1978 Colorectal Cancer Screening 1978 FIT - COLON CA SCREENING 1978 FLEX SIG - COLON CA SCREENING 1978 LIPID TESTING 1978 HIV SCREENING 1993 HEPATITIS C SCREENING 10/12/1996 DTAP/TDAP/TD VACCINES (1 - Tdap) 1997 HEPATITIS B VACCINE (1 of 3 - 19+ 3-dose series) 1997 PNEUMOCOCCAL VACCINE (1 of 2 - PCV) 1997 PAP SMEAR 11/11/2019 11/10/2016 MAMMOGRAM 04/18/2021 04/18/2019, 04/18/2019 COVID-19 VACCINE (1 - 2023-2 5 season) 2024 INFLUENZA VACCINE (#1) 2024 SCREENING FOR DIABETES 06/03/2024 DEPRESSION SCREENING 07/03/2024 04/01/2024 ZOSTER VACCINE (1 of 2) 2028 HIB VACCINE Aged Out No longer eligi ble based on patient's age to complete this topic HPV VACCINE Aged Out No longer eligi ble based on patient's age to complete this topic MENINGOCOCCAL (Group B) VACCINE Aged Out No longer eligible b ased on patient's age to complete this topic MENINGOCOCCAL VACCINE Aged Out No siomara horacio eligible based on patient's age to complete this topic Goals Goal Patient Goal Type Associated Problems [...] W COMPONENT RFLX Routine 06/03/2024 3:08 PM CHIROPRACTIC CARE Food allergy Food intolerance in adult ALLERGEN SESAME SEED IGE Routine 06/03/2024 3:08 PM CHIROPRACTIC CARE Food allergy Food intolerance in adult ALLERGEN GREEN PEPPER IGE Routine 06/03/2024 3:08 PM CHIROPRACTIC CARE Food allergy Food intolerance in adult ALLERGEN WHEAT IGE Routine 06/03/2024 3: 08 PM CHIROPRACTIC CARE Food allergy Food intolerance in adult ALLERGEN SHRIMP IGE Routine 06/03/2024 3 :08 PM CHIROPRACTIC CARE Food allergy Food intolerance in adult ALLERGEN SILVER BIRCH TREE IGE Routine 06/03/2024 3:08 PM CHIROPRACTIC CARE Food allergy Food intolerance in adult ALLERGEN RESPIRATORY PNL REGION 8 ([place]) Routine 06/03/2024 3:08 PM CHIROPRACTIC CARE Food allergy Food intolerance in adult [place] LIVER ELASTOGRAPHY Routine 06/03/2024 9:32 AM CHIROPRACTIC CARE Fatty liver PAP IMAGE-GUIDED W HPV Routine 11/10/2016 12:00 AM CDT from Last 3 Months or Most Recently Relevant to Health Maintenance Results * ALLERGEN GREEN PEPPER IGE (06/03/2024 3:08 PM CHIROPRACTIC CARE) Allergen Green Pepper <0.10 Class 0 kU/L [facility] INSURANCE BILL Blood BLOOD SPECIMEN / Unknown 06/03/2024 3:08 PM [facility]IROPRACTIC CARE 06/03/2024 Narrative [facility] INSURANCE BILL - 06/09/2024 3:06 PM CHIROPRACTIC CARE Test(s) [id number] Green Peppercorn were developed and had performance characteristics determined by [facility]. These tests have not been cleared or approved by the U.S. Food and Drug Administration. The FDA has determined that such clearance or approval is not necessary. These tests are used for clinical purposes. These should not be regarded as investigational or for research. Performed at: 01 - [address] [id number] Apprentice Pattern Maker: Rustam Garcia MD, Phone: [phone] Jeff Aldana MD LAB - CHEMISTRY TREVON COLEMAN [facility] INSURANCE BILL [address] [place] [address] * (ABNORMAL) ALLERGEN EGG WHITE IGE W COMPONENT RFLX (06/03/2024 3:08 PM CHIROPRACTIC CARE) Allergen Egg White 0.18(A) Class 0/I kU/L [facility] INSURANCE BILL Blood BLOOD SPECIMEN / Unknown 06/03/2024 3:08 PM [facility]IROPRACTIC CARE 06/03/2024 Narrative [facility] INSURANCE BILL - 06/07/2024 7:12 AM [facility]IROPRACTIC CARE Performed at: [address] [place] [id number] Apprentice Pattern Maker: Rustam Garcia MD, Phone: [phone] Jeff Aldana MD LAB - SEROLOGY ORDER LIANG Performing Organization Address [facility] Co de Phone Number [facility] INSURANCE BILL [address] [place] [address] * ALLERGEN SILVER BIRCH TREE IGE (06/03/2024 3:08 PM CHIROPRACTIC CARE) Allergen Common Silver Birch <0.10 Class 0 kU/L [facility] INSURANCE BILL Blood BLOOD SPECIMEN / Unknown 06/03/2024 3:08 PM [facility]IROPRACTIC CARE 06/03/2024 Narrative [facility] INSURANCE BILL - 06/07/2024 7:12 AM [facility]IROPRACTIC CARE Performed at: [address] [place] [id number] Apprentice Pattern Maker: Rustam Garcia MD, Phone: [phone] Jeff Aldana MD LAB - SEROLOGY ORDER LIANG Performing Organization Address [facility] de Phone Number [facility] INSURANCE BILL [address] [place] [address] * ALLERGEN SESAME SEED IGE (06/03/2024 3:08 PM CHIROPRACTIC CARE) Allergen Sesame Seed <0.10 Class 0 kU/L [facility] INSURANCE BILL Blood BLOOD SPECIMEN / Unknown 06/03/2024 3:08 PM [facility]OPRACTIC CARE 06/03/2024 Narrative [facility] INSURANCE BILL - 06/07/2024 7:12 AM [facility]OPRACTIC CARE Performed at: [address] [place] [id number] Apprentice Pattern Maker: Rustam Garcia MD, Phone: [phone] Jeff Aldana MD LAB - CHEMISTRY TREVON COLEMAN Performing Organization Address [facility] Co de Phone Number [facility] INSURANCE BILL [address] [place] [address] * (ABNORMAL) ALLERGEN SHRIMP IGE (06/03/2024 3:08 PM [facility]IROPRACTIC CARE) Allergen Shrimp 0.34(A) Class I kU/L [facility] INSURANCE BILL Blood BLOOD SPECIMEN / Unknown 06/03/2024 3:08 PM [facility]IROPRACTIC CARE 06/03/2024 Narrative [facility] INSURANCE BILL - 06/07/2024 7:12 AM [facility]IROPRACTIC CARE Performed at: - [address] [id number] Apprentice Pattern Maker: Rustam Garcia MD, Phone: [phone] Jeff Aldana MD LAB - CHEMISTRY TREVON COLEMAN Performing Organization Address [facility] de Phone Number [facility] INSURANCE BILL [address] [place] [address] * ALLERGEN WHEAT IGE (06/03/2024 3:08 PM CHIROPRACTIC CARE) Allergen Wheat <0.10 Class 0 kU/L [facility] INSURANCE BILL Blood BLOOD SPECIMEN / Unknown 06/03/2024 3:08 PM [facility]OPRACTIC CARE 06/03/2024 Narrative [facility] INSURANCE BILL - 06/07/2024 7:12 AM CHIROPRACTIC CARE Performed at: - [address] [id number] Apprentice Pattern Maker: Rustam Garcia MD, Phone: [phone] Jeff Aldana MD LAB - SEROLOGY ORDER LIANG Performing Organization Address [facility] Co de Phone Number [facility] INSURANCE BILL [address] [place] [address] * (ABNORMAL) ALLERGEN RESPIRATORY PNL REGION 8 ([place]) (06/03/2024 3:08 PM CHIROPRACTIC CARE) Class Description Blood Comment [facility] INSURANCE BILL [...] 0/I kU/L [facility] INSURANCE BILL Allergen Cockroach Spanish 0.39(A) Class I kU/L [facility] INSURANCE BILL Allergen Penicillin chrysogen 0.27(A) Class 0/I kU/L [facility] INSURANCE BILL Allergen C Herbarum 0.41(A) Class I kU/L [facility] INSURANCE BILL Allergen Aspergillus fumigatus 1.03(A) Class II kU/L [facility] INSURANCE BILL Allergen A Tenuis 5.32(A) Class IV kU/L [facility] INSURANCE BILL Allergen Maple <0.10 Class 0 kU/L [facility] INSURANCE BILL Allergen [place] Andrew 3.02(A) Class III kU/L [facility] INSURANCE BILL Allergen [place] 0.14(A) Class 0/I kU/L [facility] INSURANCE BILL Allergen Elm <0.10 Class 0 kU/L [facility] INSURANCE BILL Allergen [place] 0.10(A) Class 0/I kU/L [facility] INSURANCE BILL Allergen Maple [place] <0.10 Class 0 kU/L [facility] INSURANCE BILL Allergen [place] Tree <0.10 Class 0 kU/L [facility] INSURANCE BILL Allergen White Arnold 0.25(A) Class 0/I kU/L [facility] INSURANCE BILL Allergen Pecan [place] <0.10 Class 0 kU/L [facility] INSURANCE BILL Allergen White [place] <0.10 Class 0 kU/L [facility] INSURANCE BILL Allergen Short/Common Ragweed <0.10 Class 0 kU/L [facility] INSURANCE BILL Allergen [place] Thistle 0.12(A) Class 0/I kU/L [facility] INSURANCE BILL Allergen Rough Pigweed <0.10 Class 0 kU/L [facility] INSURANCE BILL Allergen Rough Lei Elder 0.55(A) Class I kU/L [facility] INSURANCE BILL Blood BLOOD SPECIMEN / Unknown 06/03/2024 3:08 PM [facility]IROPRACTIC CARE 06/03/2024 Narrative [facility] INSURANCE BILL - 06/07/2024 7:12 AM CHIROPRACTIC CARE Performed at: - [address] [id number] Apprentice Pattern Maker: Rustam Garcia MD, Phone: [phone] Jeff Aldana MD LAB - CHEMISTRY TREVON COLEMAN [facility] INSURANCE BILL [address] [place] [address] * [place] LIVER ELASTOGRAPHY (06/03/2024 9:32 AM CHIROPRACTIC CARE) Narrative Arley Mccann MD - 06/03/2024 9:32 AM CHIROPRACTIC CARE Arley Mccann MD 06/05/2024 10:15 PM Diagnosis: [...] patients with nonalcoholic fatty liver disease. Gastroenterology 2019;156:6486-6522. Ritika CASE, Ronn R, Van Natta ML, et al. [...] with at-risk nonalcoholic steatohepatitis (KOO) in a [facility] cohort and comparison to other non-invasive algorithms. PLoS ONE (2021) 17: [id number]. Ritu AJ, Andreas J, Dorothea ZM, et al. Enhanced diagnosis of advanced fibrosis and cirrhosis in individuals with NAFLD using FibroScan-based Agile scores. J Hepatol (2022) 78: 247-259. Fibroscan LSM can also be used with laboratory parameters without formulas to assess prognosis. According to the Baveno-VII criteria (de Franchis, 202), Fibroscan LSM <=15 kPa plus a platelet count of >=705p547/L rules out clinically significant portal hypertension (sensitivity and negative predictive value >90%) in patients with compensated advanced chronic liver disease. Chugn R, Gabe J, Jaspreet-Delgado G, Narinder T, Klever Riley on behalf of the [facility] VII Faculty. [facility]--Renewing consensus in portal hypertension. J Hepatol (2021) 76: 959-974 Assessing the likelihood of advanced fibrosis in patients with intermediate liver stiffness measurement (LSM) by Fibroscan (e.g., 8-15 kPa) can be improved by also calculating the FIB-4 score (Paula et al. Hepatology Communications 2019;3:2326-2724) or NAFLD Fibrosis score (Verduzco et al. Clinical Gastroenterology and Hepatology 2019;17:9594-5573 using routine clinical data. Note: 1. Fibroscan [...] additional interpretive data was last updated 11/05/22.) [email or web address] Kasie Whitmore RECRUITING OPERATIONS CONSULTANT-ORDER ENTRY CLERK PROCEDURE/VT NOR SURGICAL ORDERABLES * PAP IMAGE-GUIDED LIQUID BASE W HPV (11/10/2016 12:00 AM CDT) Pap Image-Guided Liquid-Based with HPV Accession No: [id number] Specimen:Endocervi milka ThinPrep Slides:1 SPECIMEN ADEQUACY: SATISFACTORY FOR EVALUATION - Endocervical / Transformation Zone Component Present INTERPRETATION: NEGATIVE FOR INTRAEPITHELIAL LESION OR MALIGNANCY NOTE(S): HPV DIRECT - HPV Result to Follow This specimen was evaluated by the ThinPrep Imaging System along with an additional manual rescreening by a floor covering contractor and/or pathologist Interpretation performed by Gordy PRICE(ASCP). Electronically signed 11/11/2016 [facility] Endocervical 11/10/2016 11/11/2016 9 :36 AM CDT Narrative [facility] - 11/11/2016 4:28 PM CDT LMP->11/01/16 Flakito Ulloa PA-C LAB - PATHOLOGY/CYT OLOGY ORDERABLES [facility] from Last 3 Months or Most Recently Relevant to Health Maintenance Care Teams Dynamics Ax Developer Relationship Specialty Start Date End Date Mateusz Estrada [address] Sol[address]; [address] [place] [address] PCP - General 04/01/24
--- OUTSIDE RECORDS SUMMARY | 2024-08-28 13:35 | XMS_ITS | Clinical Summary ---
Author Organization [facility] Address [address] [place] [address] Care Team Providers Care Gyroscope Repairer Name Role Phone Mateusz Estrada MD Primary Care Provider [phone] Mateusz Estrada MD Unavailable [phone] Allergies Active Allergy Reactions Criticality Noted Date Comments [place] Pollen Extract Swelling High 03/29/2019 Egg White [...] 09/06/2019 Assessment & Plan (09/06/2019 1:58 PM MANAGER MEDICAL): See abdominal distention. Abdominal distention 09/06/2019 Assessment & Plan (09/06/2019 1:55 PM MANAGER MEDICAL): Pt c/o bloating and abdominal distention that [...] 09/06/2019 Assessment & Plan (09/06/2019 1:57 PM MANAGER MEDICAL): Pt had testing done and found food [...] on file Sexual Orientation Not on file Obstetrics History Last Filed Vital Signs Vital Sign Reading Time Taken Comments Blood Pressure 106/68 06/19/2020 8:40 AM MANAGER MEDICAL Pulse 87 06/19/2020 8:40 AM MANAGER MEDICAL Temperature 35.8 C (96.4 F) 06/19/2020 8:40 AM MANAGER MEDICAL Respiratory Rate 20 09/06/2019 1:04 PM MANAGER MEDICAL Oxygen Saturation 96% 09/06/2019 1:04 PM MANAGER MEDICAL Inhaled Oxygen Concentration - - Weight 68.6 kg (151 lb 3.2 oz) 06/19/2020 8:40 A M MANAGER MEDICAL Height 162.6 cm (5' 4 ) 06/19/2020 8:40 AM MANAGER MEDICAL Body Mass Index 25.95 06/19/2020 8:40 AM MANAGER MEDICAL Plan of Treatment Health Maintenance Due Date Last Done Comments Cervical Cancer Screening 1978 Colon Cancer Screening-Colonoscopy 1978 Depression Screening 1978 Hepatitis C Screening 1978 DTaP/Tdap/Td Vaccine (1 - Tdap) 1989 Hepatitis B Screening 1996 Regular Well Visit/Exam 18-64 1996 Breast Cancer Screening-Mammogram 04/18/2020 019 Influenza Vaccine (#1) 2024 HPV Vaccines Aged Out No longer eligi ble based on patient's age to complete this topic Pneumococcal vaccine <65 Aged Out No longer eligible based on patient's age to complete this topic Insurance [facility] Care Teams Gyroscope Repairer Relationship Specialty Start Date End Date Mateusz Estrada MD PCP - General 01/03/19 Mateusz Estrada MD Referring Physician Family Medicine 08/06/19
--- OUTSIDE RECORDS SUMMARY | 2024-08-28 13:35 | XMS_ITS | Patient Health Summary ---
Author Organization [facility] Address [address] [place] [address] Care Team Providers Care Pipe Layer Name Role Phone Mateusz Estrada Primary Care Provider [phone] Note from [facility],non-owned Affiliates and Associated Physician Practices is amultiple site organization consisting of ambulatory clinics and hospital sitesin [place], [place], [place] and [place]. This disclosure is being madepursuant to the Care Everywhere program and may not contain all information available regarding this patient. Last updated 18.[facility] Allergies * [place] Pollen(Swelling) -High Criticality * Egg White (Diagnostic)(Swelling) -High Criticality * Sulfa Antibiotics(Urticaria) -High Criticality * Sulfa Drugs(Skin Reactions) -Medium Criticality * Sumatriptan(Nausea and/or Vomiting) -High Criticality * Wheat Bran(GI Discomfort) Medications * Be aware that medications may not be up to date on this document. Alwaysverify current medications with the patient. * cyclobenzaprine (FLEXERIL) 5 MG tablet(Started 11/10/2016) Take 5 mg by mouth q8h PRN. 1 refill left * albuterol HFA (Proventil; Ventolin; Proair) 108 (90 Base) MCG/ACT inhaler Inhale 2 (two) puffs by mouth every 6 hours as needed * acetylcysteine (N-Acetyl Cysteine) 600 MG capsule Take 1 (one) capsule by mouth 2 times daily As needed * EPINEPHrine (Epipen) 0.3 MG/0.3ML auto-injector pen(Started 04/01/2024) Inject 0.3 mL into muscle once as needed for Anaphylaxis * cetirizine (ZyrTEC) 10 MG tablet Take 1 (one) tablet by mouth once daily as needed * rizatriptan (Maxalt) 10 MG tablet Take 1 (one) tablet by mouth as needed for Migraine * acetaminophen (Tylenol) 500 MG tablet Take 1 (one) tablet by mouth as needed for Fever or Pain Maximum allowable Acetaminophen amount = 4Grams (4000 mg) / 24 hours. Active Problems Problem Noted Date Diagnosed Date Metabolic dysfunction-associated steatohepatitis (MASH) 06/03/2024 Social History Tobacco Use Types Packs/Day Years [...] Comments Blood Pressure 116/74 06/03/2024 9:09 AM SLUBBER MACHINE OPERATOR Pulse 81 06/03/2024 9:09 AM SLUBBER MACHINE OPERATOR Temperature 36.8 C (98.2 F) 06/03/2024 9:09 AM SLUBBER MACHINE OPERATOR Respiratory Rate 20 04/01/2024 1:10 PM CDT Oxygen Saturation 100% 06/03/2024 9:09 AM SLUBBER MACHINE OPERATOR Inhaled Oxygen Concentration - - Weight 67 kg (147 lb 9.6 oz) 06/03/2024 9:09 AM SLUBBER MACHINE OPERATOR Height 162.6 cm (5' 4 ) 06/03/2024 9:09 AM SLUBBER MACHINE OPERATOR Body Mass Index 25.34 06/03/2024 9:09 AM SLUBBER MACHINE OPERATOR Procedures * ALLERGEN EGG WHITE IGE W COMPONENT RFLX(Performed 06/03/2024) Performed for Food allergy, Food intolerance in adult * ALLERGEN SESAME SEED IGE(Performed 06/03/2024) Performed for Food allergy, Food intolerance in adult * ALLERGEN GREEN PEPPER IGE(Performed 06/03/2024) Performed for Food allergy, Food intolerance in adult * ALLERGEN WHEAT IGE(Performed 06/03/2024) Performed for Food allergy, Food intolerance in adult * ALLERGEN SHRIMP IGE(Performed 06/03/2024) Performed for Food allergy, Food intolerance in adult * ALLERGEN SILVER BIRCH TREE IGE(Performed 06/03/2024) Performed for Food allergy, Food intolerance in adult * ALLERGEN RESPIRATORY PNL REGION 8 ([place])(Performed 06/03/2024) Performed for Food allergy, Food intolerance in adult * AR LIVER ELASTOGRAPHY(Performed 06/03/2024) Performed for Fatty liver * PAP IMAGE-GUIDED W HPV(Performed 11/10/2016) * PATHOLOGY/GENETICS HISTORICAL-ONBASE(Performed 11/10/2016) Results * ALLERGEN GREEN PEPPER IGE (06/03/2024 3:08 PM SLUBBER MACHINE OPERATOR) Allergen Green Pepper <0.10 Class 0 kU/L [facility] INSURANCE BILL Blood BLOOD SPECIMEN / Unknown 06/03/2024 3:08 PM SLUBBER MACHINE OPERATOR 06/03/2024 Narrative [facility] INSURANCE BILL - 06/09/2024 3:06 PM SLUBBER MACHINE OPERATOR Test(s) [id number] Green Peppercorn were developed and had performance characteristics determined by [employer]. These tests have not been cleared or approved by the U.S. Food and Drug Administration. The FDA has determined that such clearance or approval is not necessary. These tests are used for clinical purposes. These should not be regarded as investigational or for research. Performed at: [address] [place] [id number] Refrigeration Engineering Teacher: Rustam Garcia MD, Phone: [phone] Jeff Aldana MD LAB - CHEMISTRY [email or web address] INSURANCE BILL [address] [place] [address] * (ABNORMAL) ALLERGEN EGG WHITE IGE W COMPONENT RFLX (06/03/2024 3:08 PM SLUBBER MACHINE OPERATOR) Allergen Egg White 0.18(A) Class 0/I kU/L [facility] INSURANCE BILL Blood BLOOD SPECIMEN / Unknown 06/03/2024 3:08 PM SLUBBER MACHINE OPERATOR 06/03/2024 Narrative [facility] 06/07/2024 7:12 AM SLUBBER MACHINE OPERATOR Performed at: 01 - [facility] [address] [id number] Refrigeration Engineering Teacher: Rustam Garcia MD, Phone: [phone] Jeff Aldana MD LAB - SEROLOGY ORDER LIANG Performing Organization Address [facility] Co de Phone Number [facility] INSURANCE BILL [address] [place] [address] * ALLERGEN SILVER BIRCH TREE IGE (06/03/2024 3:08 PM SLUBBER MACHINE OPERATOR) Allergen Common Silver Birch <0.10 Class 0 kU/L [facility] INSURANCE BILL Blood BLOOD SPECIMEN / Unknown 06/03/2024 3:08 PM SLUBBER MACHINE OPERATOR 06/03/2024 Narrative [facility] INSURANCE BILL - 06/07/2024 7:12 AM SLUBBER MACHINE OPERATOR Performed at: [facility] [id number] Refrigeration Engineering Teacher: Rustam Garcia MD, Phone: [phone] Jeff Aldana MD LAB - SEROLOGY ORDER LIANG Performing Organization Address [facility] Co de Phone Number [facility] INSURANCE BILL [address] [place] [address] * ALLERGEN SESAME SEED IGE (06/03/2024 3:08 PM SLUBBER MACHINE OPERATOR) Allergen Sesame Seed <0.10 Class 0 kU/L [facility] INSURANCE BILL Blood BLOOD SPECIMEN / Unknown 06/03/2024 3:08 PM SLUBBER MACHINE OPERATOR 06/03/2024 Narrative [facility] INSURANCE BILL - 06/07/2024 7:12 AM SLUBBER MACHINE OPERATOR Performed at: [facility] [id number] Refrigeration Engineering Teacher: Rustam Garcia MD, Phone: [phone] Jeff Aldana MD LAB - CHEMISTRY TREVON [facility]LEMAN Performing Organization Address [facility] Co de Phone Number [facility] INSURANCE BILL [address] [place] [address] * (ABNORMAL) ALLERGEN SHRIMP IGE (06/03/2024 3:08 PM SLUBBER MACHINE OPERATOR) Allergen Shrimp 0.34(A) Class I kU/L [facility] INSURANCE BILL Blood BLOOD SPECIMEN / Unknown 06/03/2024 3:08 PM SLUBBER MACHINE OPERATOR 06/03/2024 Narrative [facility] INSURANCE BILL - 06/07/2024 7:12 AM SLUBBER MACHINE OPERATOR Performed at: 01 - [facility] [id number] Refrigeration Engineering Teacher: Rustam Garcia MD, Phone: [phone] Jeff Aldana MD LAB - CHEMISTRY ORDE RABLES Performing Organization Address [facility] Co de Phone Number [facility] INSURANCE BILL [address] [place] [address] * ALLERGEN WHEAT IGE (06/03/2024 3:08 PM SLUBBER MACHINE OPERATOR) Allergen Wheat <0.10 Class 0 kU/L [facility] INSURANCE BILL Blood BLOOD SPECIMEN / Unknown 06/03/2024 3:08 PM SLUBBER MACHINE OPERATOR 06/03/2024 Narrative [facility] INSURANCE BILL - 06/07/2024 7:12 AM SLUBBER MACHINE OPERATOR Performed at: - [facility] [id number] Refrigeration Engineering Teacher: Rustam Garcia MD, Phone: [phone] Jeff Aldana MD LAB - SEROLOGY ORDER LIANG Performing Organization Address [facility] Co de Phone Number [facility] INSURANCE BILL [address] [place] [address] * (ABNORMAL) ALLERGEN RESPIRATORY PNL REGION 8 ([place]) (06/03/2024 3:08 PM SLUBBER MACHINE OPERATOR) Class Description Blood Comment [facility] INSURANCE BILL [...] 0/I kU/L [facility] INSURANCE BILL Allergen Cockroach [place] 0.39(A) Class I kU/L [facility] INSURANCE BILL Allergen Penicillin chrysogen 0.27(A) Class 0/I kU/L [facility] INSURANCE BILL Allergen C Herbarum 0.41(A) Class I kU/L [facility] INSURANCE BILL Allergen Aspergillus fumigatus 1.03(A) Class II kU/L [facility] INSURANCE BILL Allergen A Tenuis 5.32(A) Class IV kU/L [facility] INSURANCE BILL Allergen Maple <0.10 Class 0 kU/L [facility] INSURANCE BILL Allergen [place] 3.02(A) Class III kU/L [facility] INSURANCE BILL Allergen [place] 0.14(A) Class 0/I kU/L [facility] INSURANCE BILL Allergen Elm <0.10 Class 0 kU/L [facility] INSURANCE BILL Allergen [place] 0.10(A) Class 0/I kU/L [facility] INSURANCE BILL Allergen Maple [place] <0.10 Class 0 kU/L [facility] INSURANCE BILL Allergen [place] <0.10 Class 0 kU/L [facility] INSURANCE BILL Allergen White Arnold 0.25(A) Class 0/I kU/L [facility] INSURANCE BILL Allergen Pecan [place] <0.10 Class 0 kU/L [facility] INSURANCE BILL Allergen White Ralph <0.10 Class 0 kU/L [facility] INSURANCE BILL Allergen Short/Common Ragweed <0.10 Class 0 kU/L [facility] INSURANCE BILL Allergen Dominican Thistle 0.12(A) Class 0/I kU/L [facility] INSURANCE BILL Allergen Rough Pigweed <0.10 Class 0 kU/L [facility] INSURANCE BILL Allergen Rough Lei Elder 0.55(A) Class I kU/L [facility] INSURANCE BILL Blood BLOOD SPECIMEN / Unknown 06/03/2024 3:08 PM SLUBBER MACHINE OPERATOR 06/03/2024 Narrative [facility] INSURANCE BILL - 06/07/2024 7:12 AM SLUBBER MACHINE OPERATOR Performed at: 01 - [facility] [address] [id number] Refrigeration Engineering Teacher: Rustam Garcia MD, Phone: [phone] Jeff Aldana MD LAB - CHEMISTRY TREVON COLEMAN [facility] INSURANCE BILL [address] [place] [address] * AR LIVER ELASTOGRAPHY (06/03/2024 9:32 AM SLUBBER MACHINE OPERATOR) Narrative Arley Mccann MD - 06/03/2024 9:32 AM SLUBBER MACHINE OPERATOR Arley Mccann MD 06/05/2024 10:15 PM Diagnosis: [...] patients with nonalcoholic fatty liver disease. Gastroenterology 2019;156:1383-5334. Ritika MS, Ronn R, Van Natta ML, [...] These include the FAST (Fibroscan-AST) score (Gary, 2021) and the Agile3+ and Agile4 scores (Ritu, 2022). Gary TA, Van Natta ML, Hayder Eason, Chalo A, et al. Validation of the accuracy of the FAST score for detecting patients with at-risk nonalcoholic steatohepatitis (KOO) in a [place] cohort and comparison to other non-invasive algorithms. PLoS ONE (2021) 17: c6123348. Ritu AJ, Andreas J, Dorothea ZM, et al. Enhanced diagnosis of advanced fibrosis and cirrhosis in individuals with NAFLD using FibroScan-based Agile scores. J Hepatol (2022) 78: 247-259. Fibroscan LSM can also be used with laboratory parameters without formulas to assess prognosis. According to the Baveno-VII criteria (Chung, 2021), Fibroscan LSM <=15 kPa plus a platelet count of >=162w175/L rules out clinically significant portal hypertension (sensitivity and negative predictive value >90%) in patients with compensated advanced chronic liver disease. Chung R, Gabe Foley, Riley G, Narinder T, Klever Riley on behalf of the Baveno VII Faculty. Baveno VII--Renewing consensus in portal hypertension. J Hepatol (2021) 76: 959-974 Assessing the likelihood of advanced fibrosis in patients with intermediate liver stiffness measurement (LSM) by Fibroscan (e.g., 8-15 kPa) can be improved by also calculating the FIB-4 score (Nae et al. Hepat[employer] Communications 2019;3:0712-5580) or NAFLD Fibrosis score (Verduzco et al. Clinical Gastroenterology and Hepatology 2019;17:8654-9792 using routine clinical data. Note: 1. Fibroscan [...] additional interpretive data was last updated 11/05/22.) [email or web address] [email or web address] Whitmore PIPE COVERER AND INSULATOR-HAND REAMER PROCEDURE/MA NOR SURGICAL ORDERABLES * PATHOLOGY/GENETICS HISTORICAL-ONBASE (11/10/2016) 11/10/2016 Flakito Ulloa PA-C LAB - CHEMISTRY ORD ERABLES [facility] [address] [place] [address], [facility] * PAP IMAGE-GUIDED LIQUID BASE W HPV (11/10/2016 12:00 AM CDT) Pap Image-Guided Liquid-Based with HPV Accession No: [id number] Specimen:Endocervi milka ThinPrep Slides:1 SPECIMEN ADEQUACY: SATISFACTORY FOR EVALUATION - Endocervical / Transformation Zone Component Present INTERPRETATION: NEGATIVE FOR INTRAEPITHELIAL LESION OR MALIGNANCY NOTE(S): HPV DIRECT - HPV Result to Follow This specimen was evaluated by the ThinPrep Imaging System along with an additional manual rescreening by a inspector and sorter and/or pathologist Interpretation performed by Gordy PRICE(ASCP). Electronically signed 11/11/2016 [facility] Endocervical 11/10/2016 11/11/2016 9:36 AM CDT Narrative [facility] - 11/11/2016 4:28 PM CDT LMP->11/01/16 Flakito Ulloa PA-C LAB - PATHOLOGY/CYT OLOGY ORDERABLES [facility] ([facility]) Care Teams Pipe Layer Relationship Specialty Start Date End Date Mateusz Estrada [facility] [address] [place] B; [address] [address] PCP - General 04/01/24
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
== END 2024-08-28 11:36 | disposition home or self-care (01) ==
LOC: ANHLAB 11:41
PROVIDERS: PCP Family Medicine
DX: K75.81 Nonalcoholic steatohepatitis (NASH) (principal)
CPT/HCPCS: 36415; 80053; 82728; 83540; 84466; 85025